=== PATIENT | male | born 1985 | race African-American/Black ===

== ENCOUNTER 2017-06-28 13:26 | Emergency (ER) | payer BC, MEDICAID ==
[~2017-06-28 13:26] MED LIST: PENI500T PO; Z.0.NO CURRENT MEDS
[2017-06-28 13:27] VITALS: BP 138/91; PULSE 111; RESP 17; TEMP 99.7; O2SAT 99
[2017-06-28] MEDS ORDERED: IOHEXOL 350 MG/ML 10 ML VIAL (for RAD DIAG) IVCONTRAST ONE (13:27)
[2017-06-28] MEDS ORDERED: SODIUM CHLOR 0.9% 1000 ML INJ 1,000 ML IV SCH (14:23)
[2017-06-28] MEDS ORDERED: SODIUM CHLORIDE 0.9% FLUSH 10 ML FLUSH IV FLUSH PRN (14:30)
[2017-06-28] MEDS ORDERED: ONDANSETRON HCL 4 MG/2 ML VIAL IVP ONE (14:30)
--- NOTE | 2017-06-28 15:06 | PD ---
HPI Chief Complaint: ENT Complaint Time Seen by Provider: 14:15 Travel History International Travel<30 days: No Contact w/Intl Traveler<30days: No Traveled to known affect area: No History of Present Illness HPI Patient is a 32-year-old male presenting to the emergency department for evaluation of sore throat, body aches, chills, abdominal pain, nausea or vomiting. Patient's symptoms started . His states that he has had cold sweats and has felt hot. He has not been eating or drinking normally. Patient states it feels like there is a golf ball in it when he tries to swallow. Patient is able to control his secretions and has not been drooling. He denies any significant past medical history. [facility] Past Medical History Medical History: Denies Significant Hx Tetanus Vaccination: > 5 Years Past Surgical History Surgical History: No Previous Surgery Social History Alcohol Use: No Tobacco Use: Yes Substance Use: No Allergies-Medications (Allergen,Severity, Reaction): Coded Allergies: No Known Allergies (Verified , 06/28/17) Reported Meds & Prescriptions Reported Meds & Active Scripts Active No Active Prescriptions or Reported Medications Review of Systems Except as stated in HPI: all other systems reviewed are Neg General / Constitutional: Positive: Fever, Chills HENT: Positive: Sore Throat Cardiovascular: No: Chest Pain or Discomfort Respiratory: Positive: Cough, No: Shortness of Breath Gastrointestinal: Positive: Nausea, Vomiting, Abdominal Pain Musculoskeletal: Positive: Myalgias Physical Exam Narrative GENERAL: Well-developed, well-nourished, alert male. Resting comfortably in no acute distress. SKIN: Warm and dry. HEAD: Atraumatic. Normocephalic. EYES: Pupils equal and round. No scleral icterus. No injection or drainage. ENT: No nasal bleeding or discharge. Mucous membranes pink and moist. Erythematous posterior pharynx, 1+ tonsillar hypertrophy with exudate noted. Uvula is midline, airway is patent. NECK: Trachea midline. No JVD. CARDIOVASCULAR: Regular rate and rhythm. RESPIRATORY: No accessory muscle use. Clear to auscultation. Breath sounds equal bilaterally. GASTROINTESTINAL: Abdomen soft, tender to palpation left lower quadrant, nondistended. Hepatic and splenic margins not palpable. No rebound, no guarding. Positive bowel sounds. MUSCULOSKELETAL: Extremities without clubbing, cyanosis, or edema. No obvious deformities. NEUROLOGICAL: Awake and alert. No obvious cranial nerve deficits. Motor grossly within normal limits. Five out of 5 muscle strength in the arms and legs. Normal speech. PSYCHIATRIC: Appropriate mood and affect; insight and judgment normal. Data Data Last Documented VS Vital Signs Date Time Temp Pulse Resp B/P (MAP) Pulse Ox O2 Delivery O2 Flow Rate FiO2 06/28/17 15:48 74 18 97 Room Air 06/28/17 13:27 99.7 Orders Orders Group A Rapid Strep Screen (06/28/17 14:14) Complete Blood Count With Diff (06/28/17 14:23) Comprehensive Metabolic Panel (06/28/17 14:23) Lipase (06/28/17 14:23) Ct Abd/Pel W Iv Contrast(Rout) (06/28/17 14:23) Iv Access Insert/Monitor (06/28/17 14:23) Ecg Monitoring (06/28/17 14:23) Oximetry (06/28/17 14:23) Ondansetron Inj (Zofran Inj) (06/28/17 14:30) Sodium Chlor 0.9% 1000 Ml Inj (Ns 1000 M (06/28/17 14:23) Sodium Chloride 0.9% Flush (Ns Flush) (06/28/17 14:30) Strep Culture (Group A) (06/28/17 14:15) Iohexol 350 Inj (Omnipaque 350 Inj) (06/28/17 13:27) Methylprednisolone So Succ Inj (Solumedr (06/28/17 16:30) Ibuprofen Liq (Motrin Liq) (06/28/17 16:30) Chest, Single Ap (06/28/17 ) Ibuprofen Liq (Motrin Liq) (06/28/17 16:45) Prochlorperazine Inj (Compazine Inj) (06/28/17 16:45) Ct Soft Tiss Neck W/O Iv Cont (06/28/17 ) Labs Laboratory Tests Test 06/28/17 14:30 White Blood Count 18.2 TH/MM3 Red Blood Count 4.97 MIL/MM3 Hemoglobin 14.7 GM/DL Hematocrit 44.2 % Mean Corpuscular Volume 88.8 FL Mean Corpuscular Hemoglobin 29.6 PG Mean Corpuscular Hemoglobin Concent 33.3 % Red Cell Distribution Width 13.0 % Platelet Count 322 TH/MM3 Mean Platelet Volume 7.8 FL Neutrophils (%) (Auto) 76.0 % Lymphocytes (%) (Auto) 9.9 % Monocytes (%) (Auto) 13.5 % Eosinophils (%) (Auto) 0.1 % Basophils (%) (Auto) 0.5 % Neutrophils # (Auto) 13.9 TH/MM3 Lymphocytes # (Auto) 1.8 TH/MM3 Monocytes # (Auto) 2.4 TH/MM3 Eosinophils # (Auto) 0.0 TH/MM3 Basophils # (Auto) 0.1 TH/MM3 CBC Comment AUTO DIFF Differential Total Cells Counted 100 Neutrophils % (Manual) 64 % Band Neutrophils % 5 % Lymphocytes % 14 % Monocytes % 12 % Neutrophils # (Manual) 13.5 TH/MM3 Metamyelocytes 1 % Myelocytes 4 % Differential Comment FINAL DIFF MANUAL Platelet Estimate NORMAL Platelet Morphology Comment NORMAL Red Cell Morphology Comment NORMAL Blood Urea Nitrogen 19 MG/DL Creatinine 1.43 MG/DL Random Glucose 112 MG/DL Total Protein 9.1 GM/DL Albumin 3.5 GM/DL Calcium Level 9.7 MG/DL Alkaline Phosphatase 89 U/L Aspartate Amino Transf (AST/SGOT) 32 U/L Alanine Aminotransferase (ALT/SGPT) 43 U/L Total Bilirubin 0.8 MG/DL Sodium Level 136 MEQ/L Potassium Level 3.3 MEQ/L Chloride Level 96 MEQ/L Carbon Dioxide Level 30.8 MEQ/L Anion Gap 9 MEQ/L Estimat Glomerular Filtration Rate 69 ML/MIN Lipase 86 U/L MDM Medical Decision Making Medical Screen Exam Complete: Yes Emergency Medical Condition: Yes Interpretation(s) Last Impressions Abdomen/Pelvis CT 06/28/17 1423 Signed Impressions: Service Date/Time: Wednesday, June 28, 2017 16:04 - CONCLUSION: 1. Hepatic steatosis. 2. Unremarkable bowel gas pattern with no inflammatory change or obstruction. Max Marrufo MD Neck CT 06/28/17 0000 Signed Impressions: Service Date/Time: Wednesday, June 28, 2017 17:13 - CONCLUSION: 1. No abscess identified. Luis De La Torre MD Chest X-Ray 06/28/17 0000 Signed Impressions: Service Date/Time: Wednesday, June 28, 2017 16:23 - CONCLUSION: No acute disease. There is no evidence of pneumonia. Max Marrufo MD Laboratory Tests Test 06/28/17 14:30 White Blood Count 18.2 TH/MM3 Red Blood Count 4.97 MIL/MM3 Hemoglobin 14.7 GM/DL Hematocrit 44.2 % Mean Corpuscular Volume 88.8 FL Mean Corpuscular Hemoglobin 29.6 PG Mean Corpuscular Hemoglobin Concent 33.3 % Red Cell Distribution Width 13.0 % Platelet Count 322 TH/MM3 Mean Platelet Volume 7.8 FL Neutrophils (%) (Auto) 76.0 % Lymphocytes (%) (Auto) 9.9 % Monocytes (%) (Auto) 13.5 % Eosinophils (%) (Auto) 0.1 % Basophils (%) (Auto) 0.5 % Neutrophils # (Auto) 13.9 TH/MM3 Lymphocytes # (Auto) 1.8 TH/MM3 Monocytes # (Auto) 2.4 TH/MM3 Eosinophils # (Auto) 0.0 TH/MM3 Basophils # (Auto) 0.1 TH/MM3 CBC Comment AUTO DIFF Differential Total Cells Counted 100 Neutrophils % (Manual) 64 % Band Neutrophils % 5 % Lymphocytes % 14 % Monocytes % 12 % Neutrophils # (Manual) 13.5 TH/MM3 Metamyelocytes 1 % Myelocytes 4 % Differential Comment FINAL DIFF MANUAL Platelet Estimate NORMAL Platelet Morphology Comment NORMAL Red Cell Morphology Comment NORMAL Blood Urea Nitrogen 19 MG/DL Creatinine 1.43 MG/DL Random Glucose 112 MG/DL Total Protein 9.1 GM/DL Albumin 3.5 GM/DL Calcium Level 9.7 MG/DL Alkaline Phosphatase 89 U/L Aspartate Amino Transf (AST/SGOT) 32 U/L Alanine Aminotransferase (ALT/SGPT) 43 U/L Total Bilirubin 0.8 MG/DL Sodium Level 136 MEQ/L Potassium Level 3.3 MEQ/L Chloride Level 96 MEQ/L Carbon Dioxide Level 30.8 MEQ/L Anion Gap 9 MEQ/L Estimat Glomerular Filtration Rate 69 ML/MIN Lipase 86 U/L Vital Signs Date Time Temp Pulse Resp B/P (MAP) Pulse Ox O2 Delivery O2 Flow Rate FiO2 06/28/17 14:11 96 16 06/28/17 13:27 99.7 111 17 138/91 (107) 99 Differential Diagnosis Viral syndrome versus strep pharyngitis versus diverticulitis versus colitis versus appendicitis versus other Narrative Course Patient is a 32-year-old male presenting to the emergency for evaluation of sore throat, body aches. Patient's vital signs are stable, he was mildly tachycardic on arrival. He reported abdominal pain as well as a feeling of a golf ball in his throat. Labs imaging were ordered and pending. CBC with a white count of 18.2 with left shift CBC with potassium 3.3, oral replacement ordered. Patient was given IV fluids, ibuprofen, Solu-Medrol. Patient reports improvement in pain after the administration of medications. Patient initially complained of abdominal pain, CT scan abdomen and pelvis shows hepatic status is, no acute abnormalities noted otherwise. Chest x-ray shows no acute disease CT of the neck shows no abscess. Findings are most consistent with an exudative pharyngitis, no other source of infection was identified. Discussed findings with my attending physician. Patient will be discharged home on clindamycin, prednisone and ibuprofen. He was given strict return precautions. Again patient reports feeling better, he appears well. He verbalized understanding of discharge instructions. Patient is stable for discharge. Diagnosis Primary Impression: Exudative pharyngitis Referrals: [facility] Primary Care Physician Patient Instructions: General Instructions, Pharyngitis (ED) Additional Instructions: Follow-up with your primary doctor Complete full course of antibiotics as prescribed Increased fluid intake Return to emergency department for any new or worsening symptoms Med/Other Pt SpecificInfo: Prescription(s) given Scripts Prednisone (Prednisone) 20 Mg Tab 20 MG PO BID for 5 Days, #10 TAB 0 Refills Prov: Pamella Zepeda 06/28/17 Ibuprofen (Ibuprofen) 800 Mg Tab 800 MG PO Q6HR Y for PAIN, #40 TAB 0 Refills Prov: Pamella Zepeda 06/28/17 Clindamycin (Clindamycin) 300 Mg Cap 300 MG PO Q6H for Infection for 10 Days, CAP 0 Refills Prov: Pamella Zepeda 06/28/17 Disposition: 01 DISCHARGE HOME Condition: Stable Pamella Zepeda Jun 28, 2017 15:06
[2017-06-28 15:12] LABS: AUTOMATED NEUTROPHIL # 13.9 TH/MM3 (1.8-7.7); BASOPHIL # 0.1 TH/MM3 (0-0.2); BASOPHIL % 0.5 % (0.0-2.0); EOSINOPHIL % 0.1 % (0.0-4.0); HEMATOCRIT 44.2 % (39.0-51.0); LYMPH % 9.9 % (9.0-44.0); LYMPHOCYTE # 1.8 TH/MM3 (1.0-4.8); MEAN CELL VOLUME 88.8 FL (80.0-100.0); MEAN CORPUSCULAR HEMOGLOBIN 29.6 PG (27.0-34.0); MEAN CORPUSCULAR HGB CONC 33.3 % (32.0-36.0); MONO % 13.5 % (0.0-8.0); PLATELET COUNT 322 TH/MM3 (150-450); RED BLOOD COUNT 4.97 MIL/MM3 (4.50-5.90); WHITE BLOOD COUNT 18.2 TH/MM3 (4.0-11.0)
[2017-06-28 15:14] LABS: HEMO FLAGS AUTO DIFF
[2017-06-28 15:39] LABS: ANION GAP 9 MEQ/L (5-15); AST (GOT) 32 U/L (15-37); BICARBONATE 30.8 MEQ/L (21.0-32.0); BLOOD UREA NITROGEN 19 MG/DL (7-18); CHLORIDE 96 MEQ/L (98-107); GLOMERULAR FILTRATION RATE 69 ML/MIN (>89); POTASSIUM 3.3 MEQ/L (3.5-5.1); SODIUM (NA) 136 MEQ/L (136-145)
[2017-06-28 15:41] LABS: ALKALINE PHOSPHATASE 89 U/L (45-117); ALT (GPT) 43 U/L (12-78); TOTAL BILIRUBIN ADULT 0.8 MG/DL (0.2-1.0)
[2017-06-28 15:48] VITALS: PULSE 74; RESP 18; O2SAT 97
[2017-06-28 15:50] LABS: BANDS 5 % (0-6); METAMYELOCYTES 1 % (0-1); MYELOCYTES 4 % (0-0); NEUTROPHIL # MANUAL DIFF 13.5 TH/MM3 (1.8-7.7); POLYS (SEG NEUTROPHILS) 64 % (16-70); WBC DIFF SAMPLE 100
[2017-06-28 15:51] LABS: PLATELET ESTIMATE SMEAR NORMAL (NORMAL); PLATELET MORPHOLOGY NORMAL (NORMAL); SCAN/DIFF FINAL DIFF MANUAL
--- NOTE | 2017-06-28 16:20 | RADRPT ---
EXAM DATE/TIME: 06/28/2017 16:04 [facility] COMPARISON: No previous studies available for comparison. INDICATIONS : Abdomen pain with nausea and chills for 6 days. IV CONTRAST: 96 cc Omnipaque 350 (iohexol) IV ORAL CONTRAST: No oral contrast ingested. RADIATION DOSE: 13.85 CTDIvol (mGy) MEDICAL HISTORY : None SURGICAL HISTORY : None. ENCOUNTER: Initial ACUITY: 4 - 6 days PAIN SCALE: 5/10 LOCATION: Bilateral upper quadrant TECHNIQUE: Volumetric scanning of the abdomen and pelvis was performed. Using automated exposure control and ad justment of the mA and/or kV according to patient size, radiation dose was kept as low as reasonably achievable to obtain optimal diagnostic quality images. DICOM format image data is available electro nically for review and comparison. FINDINGS: LOWER LUNGS: The visualized lower lungs are clear. LIVER: Homogeneous density without lesion. There is no dilation of the biliary tree. No calcified gallston es. There is moderate hepatic steatosis. SPLEEN: Normal size without lesion. PANCREAS: Within normal limits. KIDNEYS: Normal in size and shape. There is no mass, stone or hydronephrosis. ADRENAL GLANDS: Within normal limits. VASCULAR: There is no aortic aneurysm. BOWEL/MESENTERY: No oral contrast was given limiting the sensitivity. The stomach, small bowel, and colon demonstrate no acute abnormality. There is no free intraperitoneal air or fluid. ABDOMINAL WALL: Within normal limits. RETROPERITONEUM: There is no lymphadenopathy. BLADDER: No wall thickening or mass. REPRODUCTIVE: Within normal limits. INGUINAL: There is no lymphadenopathy or hernia. MUSCULOSKELETAL: Within normal limits for patient age. CONCLUSION: 1. Hepatic steatosis. 2. Unremarkable bowel gas pattern with no inflammatory change or obstruction. Max Marrufo MD on June 28, 2017 at 16:17 Board Certified Radiologist. This report was verified electronically.
[2017-06-28] MEDS ORDERED: IBUPROFEN SUSP 100 MG/5 ML 120 ML BOTTLE PO ONE (16:30)
[2017-06-28] MEDS ORDERED: methylPREDNISolone SOD SUCC 125 MG/2 ML VIAL IV PUSH ONE (16:30)
[2017-06-28] MEDS ORDERED: PROCHLORPERAZINE INJ 10 MG/2 ML VIAL IV PUSH ONE (16:45)
[2017-06-28] MEDS ORDERED: IBUPROFEN SUSP 100 MG/5 ML UDC PO ONE (16:45)
--- NOTE | 2017-06-28 17:02 | RADRPT ---
EXAM DATE/TIME: 06/28/2017 16:23 [facility] COMPARISON: No previous studies available for comparison. INDICATIONS : Fever. Flu-like symptoms for the past six days. MEDICAL HISTORY : None. SURGICAL HISTORY : None. ENCOUNTER: Initial ACUITY: 4 - 6 days PAIN SCORE: 0/10 LOCATION: Bilateral chest FINDINGS: A single view of the chest demonstrates the lungs to be symmetrically aerated without evidence of mas s, infiltrate or effusion. The cardiomediastinal contours are unremarkable. Osseous structures are intact. CONCLUSION: No acute disease. There is no evidence of pneumonia. Max Marrufo MD on June 28, 2017 at 17:00 Board Certified Radiologist. This report was verified electronically.
--- NOTE | 2017-06-28 17:30 | RADRPT ---
EXAM DATE/TIME: 06/28/2017 17:13 [facility] COMPARISON: CT ABDOMEN & PELVIS W CONTRAST, June 28, 2017, 16:04. INDICATIONS : Swelling in neck, abscess. RADIATION DOSE: 20.03 CTDIvol (mGy) MEDICAL HISTORY : None SURGICAL HISTORY : None. ENCOUNTER: Initial ACUITY: 4 - 6 days PAIN SCORE: 2/10 LOCATION: neck region. TECHNIQUE: Volumetric scanning of the neck was performed. Using automated exposure control and adjustment of th e mA and/or kV according to patient size, radiation dose was kept as low as reasonably achievable to obtain optimal diagnostic quality images. DICOM format image data is available electronically for re view and comparison. FINDINGS: NASOPHARYNX: The nasopharyngeal airway has a normal configuration. No mucosal thickening or mass is seen. OROPHARYNX: The intrinsic muscles of the tongue are symmetric. The tonsillar pillars are intact. The prevertebr al soft tissues are not thickened. LARYNX: The supraglottic, glottic, and infraglottic structures are intact. PARAPHARYNGEAL: The parapharyngeal space is intact. SALIVARY GLANDS: The parotid and submandibular glands are intact. LYMPH NODES: There are some small jugular and posterior cervical nodes. No enlarged or necrotic adenopathy is seen . THYROID: Homogeneous enhancement without evidence of nodule. BONES: Unremarkable. CONCLUSION: 1. No abscess identified. Luis De La Torre MD on June 28, 2017 at 17:25 Board Certified Radiologist. This report was verified electronically.
[2017-06-28] MEDS ORDERED: CLIN1CAP6 PO (17:56)
[2017-06-28] MEDS ORDERED: IBUP800T23 PO (17:56)
[2017-06-28] MEDS ORDERED: PRED20 PO (17:56)
[2017-06-28] MEDS ORDERED: POTASSIUM CHLORIDE 10 MEQ CONTROLLED RELEASE TAB PO ONE (18:15)
== END 2017-06-28 19:30 | disposition home or self-care (01) ==
LOC: NEPD 13:26
DX: J02.9 Acute pharyngitis, unspecified (principal); R05 Cough; R11.2 Nausea with vomiting, unspecified; M79.1 Myalgia; R00.0 Tachycardia, unspecified; K76.0 Fatty (change of) liver, not elsewhere classified; Z72.0 Tobacco use
CPT/HCPCS: 70490; 71010; 74177; 80053; 83690; 85007; 85027; 87081; 87880; 96361; 96374; 96375; 99285; J0780; J2405; J2930; J7030; Q9967

== ENCOUNTER 2017-06-29 22:08 | Inpatient (IN) | payer MEDICAID, OTHER ==
[~2017-06-29] VITALS: Ht 175.3 cm; Wt 99.4 kg
[~2017-06-29 22:08] MED LIST changes: +CLIN1CAP6 PO; +IBUP800T23 PO; -PENI500T PO; +PRED20 PO; -Z.0.NO CURRENT MEDS
[2017-06-29 22:11] VITALS: BP 176/84; PULSE 86; RESP 16; TEMP 98.8; O2SAT 99
--- NOTE | 2017-06-29 23:14 | PD ---
HPI Chief Complaint: GI Complaint Time Seen by Provider: 23:12 Travel History International Travel<30 days: No Contact w/Intl Traveler<30days: No Traveled to known affect area: No History of Present Illness HPI 32-year-old male presents to emergency department for evaluation of persistent nausea, vomiting, and burning in his esophagus. Pt states the burning in his esophagus is unbearable It worsens every time he vomits. Denies hematemesis. No diarrhea. Patient has been voiding well. He was seen and evaluated yesterday with complete workup to include CT abdomen and pelvis, chest x-ray, and neck CT, discharged home to follow-up outpatient. There were no acute findings identified at that time. He was discharged home on clindamycin, prednisone, and with additional pain control. He has other symptoms to report. PFSH Past Medical History Tetanus Vaccination: > 5 Years Influenza Vaccination: No Social History Alcohol Use: No Tobacco Use: Yes Substance Use: No Allergies-Medications (Allergen,Severity, Reaction): Coded Allergies: No Known Allergies (Verified , 06/29/17) Reported Meds & Prescriptions Reported Meds & Active Scripts Active Prednisone 20 Mg Tab 20 Mg PO BID 5 Days Ibuprofen 800 Mg Tab 800 Mg PO Q6HR PRN Clindamycin (Clindamycin HCl) 300 Mg Cap 300 Mg PO Q6H 10 Days Review of Systems Except as stated in HPI: all other systems reviewed are Neg Physical Exam Narrative GENERAL: Well-nourished male patient, ambulatory and in no acute distress SKIN: Focused skin assessment warm/dry. HEAD: Atraumatic. Normocephalic. EYES: Pupils equal and round. No scleral icterus. No injection or drainage. ENT: No nasal bleeding or discharge. Mucous membranes pink and moist. 2+ tonsillar edema with erythema and exudate. NECK: Trachea midline. No JVD. Anterior cervical lymphadenopathy. CARDIOVASCULAR: Regular rate and rhythm. No murmur appreciated. RESPIRATORY: No accessory muscle use. Clear to auscultation. Breath sounds equal bilaterally. GASTROINTESTINAL: Abdomen soft, distended. Epigastric tenderness to palpation. No guarding. No rebound tenderness. Hepatic and splenic margins not palpable. MUSCULOSKELETAL: No obvious deformities. No clubbing. No cyanosis. No edema. NEUROLOGICAL: Awake and alert. No obvious cranial nerve deficits. Motor grossly within normal limits. Normal speech. PSYCHIATRIC: Appropriate mood and affect; insight and judgment normal. Data Data Last Documented VS Vital Signs Date Time Temp Pulse Resp B/P (MAP) Pulse Ox O2 Delivery O2 Flow Rate FiO2 06/29/17 22:11 98.8 86 16 176/84 (114) 99 Room Air Orders Orders Iv Access Insert/Monitor (06/29/17 23:15) Complete Blood Count With Diff (06/29/17 23:15) Basic Metabolic Panel (Bmp) (06/29/17 23:15) Urinalysis - C+S If Indicated (06/29/17 23:15) Monoscreen (06/29/17 23:15) Sodium Chlor 0.9% 1000 Ml Inj (Ns 1000 M (06/29/17 23:15) Ondansetron Inj (Zofran Inj) (06/29/17 23:15) Pantoprazole Inj (Protonix Inj) (06/29/17 23:15) Prochlorperazine Inj (Compazine Inj) (06/30/17 00:15) Diphenhydramine Inj (Benadryl Inj) (06/30/17 00:15) Chest, Single Ap (06/30/17 ) Hepatic Functional Panel (06/30/17 00:45) Lipase (06/30/17 00:45) Lactic Acid (06/30/17 00:45) C-Reactive Protein (Crp) (06/30/17 00:45) Labs Laboratory Tests Test 06/30/17 00:00 White Blood Count 29.1 TH/MM3 Red Blood Count 4.98 MIL/MM3 Hemoglobin 14.6 GM/DL Hematocrit 43.5 % Mean Corpuscular Volume 87.5 FL Mean Corpuscular Hemoglobin 29.2 PG Mean Corpuscular Hemoglobin Concent 33.4 % Red Cell Distribution Width 13.0 % Platelet Count 371 TH/MM3 Mean Platelet Volume 7.6 FL Neutrophils (%) (Auto) 82.8 % Lymphocytes (%) (Auto) 6.9 % Monocytes (%) (Auto) 9.8 % Eosinophils (%) (Auto) 0.1 % Basophils (%) (Auto) 0.4 % Neutrophils # (Auto) 24.1 TH/MM3 Lymphocytes # (Auto) 2.0 TH/MM3 Monocytes # (Auto) 2.9 TH/MM3 Eosinophils # (Auto) 0.0 TH/MM3 Basophils # (Auto) 0.1 TH/MM3 CBC Comment AUTO DIFF Blood Urea Nitrogen 20 MG/DL Creatinine 1.40 MG/DL Random Glucose 128 MG/DL Calcium Level 9.4 MG/DL Sodium Level 136 MEQ/L Potassium Level 3.6 MEQ/L Chloride Level 97 MEQ/L Carbon Dioxide Level 30.8 MEQ/L Anion Gap 8 MEQ/L Estimat Glomerular Filtration Rate 71 ML/MIN Monoscreen NEG MDM Medical Decision Making Medical Screen Exam Complete: Yes Emergency Medical Condition: Yes Medical Record Reviewed: Yes Differential Diagnosis Gastritis versus gastroenteritis versus esophageal tear versus PUD versus tonsillitis versus pharyngitis Narrative Course 32-year-old male presents to emergency department for evaluation of persistent vomiting with associated esophageal pain/burning. Patient appears without distress. He does have epigastric tenderness to palpation. Lab work is ordered for comparison to yesterday. I do not to LV Hugo. Disposition will pend his judgment. [facility] Point of Care Internal Pos. & Neg. Controls: Passed Gastric Specimen Occult Blood: Negative Condition: Stable Cindy Voss Jun 29, 2017 23:14
[2017-06-29] MEDS ORDERED: ONDANSETRON HCL 4 MG/2 ML VIAL IVP ONE (23:15)
[2017-06-29] MEDS ORDERED: PANTOPRAZOLE SODIUM 40 MG VIAL IVP ONE (23:15)
[2017-06-29] MEDS ORDERED: SODIUM CHLOR 0.9% 1000 ML INJ 1,000 ML IV ONE (23:15)
[2017-06-30] VITALS (8 sets, daily range): BP systolic 123–152; BP diastolic 77–92; PULSE 65–90; RESP 16–18; TEMP 98.5–99.3; O2SAT 98–100
[2017-06-30] MEDS ORDERED: PROCHLORPERAZINE INJ 10 MG/2 ML VIAL IV PUSH ONE (00:15)
[2017-06-30] MEDS ORDERED: diphenhydrAMINE HCL 50 MG/ML VIAL IV PUSH ONE (00:15)
[2017-06-30 00:25] LABS: AUTOMATED NEUTROPHIL # 24.1 TH/MM3 (1.8-7.7); BASOPHIL # 0.1 TH/MM3 (0-0.2); BASOPHIL % 0.4 % (0.0-2.0); EOSINOPHIL % 0.1 % (0.0-4.0); HEMATOCRIT 43.5 % (39.0-51.0); LYMPH % 6.9 % (9.0-44.0); MEAN CELL VOLUME 87.5 FL (80.0-100.0); MEAN CORPUSCULAR HEMOGLOBIN 29.2 PG (27.0-34.0); MEAN CORPUSCULAR HGB CONC 33.4 % (32.0-36.0); MONO % 9.8 % (0.0-8.0); NEUT % 82.8 % (16.0-70.0); PLATELET COUNT 371 TH/MM3 (150-450); RED BLOOD COUNT 4.98 MIL/MM3 (4.50-5.90); WHITE BLOOD COUNT 29.1 TH/MM3 (4.0-11.0)
[2017-06-30 00:30] LABS: HEMO FLAGS AUTO DIFF
[2017-06-30 00:46] LABS: BICARBONATE 30.8 MEQ/L (21.0-32.0); POTASSIUM 3.6 MEQ/L (3.5-5.1)
[2017-06-30 00:57] LABS: BANDS 2 % (0-6); CORRECTED NUCLEATED RBC 1 /100 WBC (0-0); METAMYELOCYTES 2 % (0-1); MYELOCYTES 1 % (0-0); NEUTROPHIL # MANUAL DIFF 22.7 TH/MM3 (1.8-7.7); POLYS (SEG NEUTROPHILS) 73 % (16-70); WBC DIFF SAMPLE 100
[2017-06-30 00:59] LABS: PLATELET ESTIMATE SMEAR NORMAL (NORMAL); PLATELET MORPHOLOGY NORMAL (NORMAL); SCAN/DIFF FINAL DIFF MANUAL
--- NOTE | 2017-06-30 01:15 | RADRPT ---
EXAM DATE/TIME: 06/30/2017 00:49 [facility] COMPARISON: CHEST SINGLE AP, June 28, 2017, 16:23. INDICATIONS : Chest and upper abdomen pain. MEDICAL HISTORY : None. SURGICAL HISTORY : None. ENCOUNTER: Initial ACUITY: 2 days PAIN SCORE: 7/10 LOCATION: Bilateral chest FINDINGS: A single view of the chest demonstrates the lungs to be symmetrically aerated without evidence of mas s, infiltrate or effusion. The cardiomediastinal contours are unremarkable. Osseous structures are intact. CONCLUSION: No acute cardiopulmonary process. Too Gagnon MD on June 30, 2017 at 1:08 Board Certified Radiologist. This report was verified electronically.
[2017-06-30 01:24] LABS: INDIRECT BILIRUBIN 0.3 MG/DL (0.0-0.8); TOTAL BILIRUBIN ADULT 0.5 MG/DL (0.2-1.0)
[2017-06-30 02:25] LABS: BLOOD, URINE NEG (NEG); COMMENT (UR) CULT NOT INDICATED; CULTURE IF INDICATED CULT NOT INDICATED; GLUCOSE,URINE NEG (NEG); KETONE, URINE 10 mg/dL (NEG); MUCUS URINE FEW /lpf (OCC); NITRITE,URINE NEG (NEG); PH, URINE 5.5 (5.0-8.5); URINE COLOR YELLOW (YELLW/STRAW)
[2017-06-30] MEDS ORDERED: NALOXONE HCL 0.4 MG/ML AMP IV PUSH PRN (03:00)
[2017-06-30] MEDS ORDERED: SODIUM CHLORIDE 0.9% FLUSH 10 ML FLUSH IV FLUSH PRN (03:00)
--- NOTE | 2017-06-30 03:03 | PD ---
Physical Exam Date Seen by Provider: Jun 30, 2017 Time Seen by Provider: 02:59 Narrative GENERAL: This is a well-nourished, well-developed patient, in no apparent distress. SKIN: No rashes, ecchymoses or lesions. Warm and dry. HEAD: Atraumatic. Normocephalic. EYES: PERRL, EOMI, no discharge or injection. No scleral icterus. EARS: Clear NOSE: Nasal turbinates appear normal. THROAT: Posterior pharynx is mildly erythematous. He has mucous members are somewhat dry.. Airway patent. NECK: Trachea midline. supple, moves head freely. LUNGS: Clear to auscultation. CV: Regular in rhythm. ABDOMEN: Soft, mild tenderness in the epigastrium. No guarding or rebound.. EXT: No clubbing cyanosis or edema. Data Data Last Documented VS Vital Signs Date Time Temp Pulse Resp B/P (MAP) Pulse Ox O2 Delivery O2 Flow Rate FiO2 06/30/17 02:39 99.3 06/29/17 22:11 86 16 99 Room Air Orders Orders Iv Access Insert/Monitor (06/29/17 23:15) Complete Blood Count With Diff (06/29/17 23:15) Basic Metabolic Panel (Bmp) (06/29/17 23:15) Urinalysis - C+S If Indicated (06/29/17 23:15) Monoscreen (06/29/17 23:15) Sodium Chlor 0.9% 1000 Ml Inj (Ns 1000 M (06/29/17 23:15) Ondansetron Inj (Zofran Inj) (06/29/17 23:15) Pantoprazole Inj (Protonix Inj) (06/29/17 23:15) Prochlorperazine Inj (Compazine Inj) (06/30/17 00:15) Diphenhydramine Inj (Benadryl Inj) (06/30/17 00:15) Chest, Single Ap (06/30/17 ) Lactic Acid (06/30/17 00:45) C-Reactive Protein (Crp) (06/30/17 00:00) Hepatic Functional Panel (06/30/17 00:00) Lipase (06/30/17 00:00) Admit Order (Ed Use Only) (06/30/17 02:58) Labs Laboratory Tests Test 06/29/17 02:15 06/30/17 00:00 06/30/17 00:50 Urine Color YELLOW Urine Turbidity CLEAR Urine pH 5.5 Urine Specific [place] 1.021 Urine Protein TRACE mg/dL Urine Glucose (UA) NEG mg/dL Urine Ketones 10 mg/dL Urine Occult Blood NEG Urine Nitrite NEG Urine Bilirubin NEG Urine Urobilinogen 2.0 MG/DL Urine Leukocyte Esterase NEG Urine RBC LESS THAN 1 /hpf Urine WBC 1 /hpf Urine Mucus FEW /lpf Microscopic Urinalysis Comment CULT NOT INDICATED White Blood Count 29.1 TH/MM3 Red Blood Count 4.98 MIL/MM3 Hemoglobin 14.6 GM/DL Hematocrit 43.5 % Mean Corpuscular Volume 87.5 FL Mean Corpuscular Hemoglobin 29.2 PG Mean Corpuscular Hemoglobin Concent 33.4 % Red Cell Distribution Width 13.0 % Platelet Count 371 TH/MM3 Mean Platelet Volume 7.6 FL Neutrophils (%) (Auto) 82.8 % Lymphocytes (%) (Auto) 6.9 % Monocytes (%) (Auto) 9.8 % Eosinophils (%) (Auto) 0.1 % Basophils (%) (Auto) 0.4 % Neutrophils # (Auto) 24.1 TH/MM3 Lymphocytes # (Auto) 2.0 TH/MM3 Monocytes # (Auto) 2.9 TH/MM3 Eosinophils # (Auto) 0.0 TH/MM3 Basophils # (Auto) 0.1 TH/MM3 CBC Comment AUTO DIFF Differential Total Cells Counted 100 Neutrophils % (Manual) 73 % Band Neutrophils % 2 % Lymphocytes % 13 % Monocytes % 9 % Neutrophils # (Manual) 22.7 TH/MM3 Metamyelocytes 2 % Myelocytes 1 % Nucleated Red Blood Cells 1 /100 WBC Differential Comment FINAL DIFF MANUAL Platelet Estimate NORMAL Platelet Morphology Comment NORMAL Blood Urea Nitrogen 20 MG/DL Creatinine 1.40 MG/DL Random Glucose 128 MG/DL Total Protein 8.6 GM/DL Albumin 3.5 GM/DL Calcium Level 9.4 MG/DL Alkaline Phosphatase 79 U/L Aspartate Amino Transf (AST/SGOT) 38 U/L Alanine Aminotransferase (ALT/SGPT) 59 U/L Total Bilirubin 0.5 MG/DL Direct Bilirubin 0.2 MG/DL Sodium Level 136 MEQ/L Potassium Level 3.6 MEQ/L Chloride Level 97 MEQ/L Carbon Dioxide Level 30.8 MEQ/L Anion Gap 8 MEQ/L Estimat Glomerular Filtration Rate 71 ML/MIN Indirect Bilirubin 0.3 MG/DL C-Reactive Protein 1.42 MG/DL Lipase 735 U/L Monoscreen NEG Lactic Acid Level 1.1 mmol/L [facility] Medical Record Reviewed: Yes Supervised Visit with [place]: Yes Interpretation(s) Laboratory Tests Test 06/29/17 02:15 06/30/17 00:00 06/30/17 00:50 Urine Color YELLOW Urine Turbidity CLEAR Urine pH 5.5 Urine Specific [place] 1.021 Urine Protein TRACE mg/dL Urine Glucose (UA) NEG mg/dL Urine Ketones 10 mg/dL Urine Occult Blood NEG Urine Nitrite NEG Urine Bilirubin NEG Urine Urobilinogen 2.0 MG/DL Urine Leukocyte Esterase NEG Urine RBC LESS THAN 1 /hpf Urine WBC 1 /hpf Urine Mucus FEW /lpf Microscopic Urinalysis Comment CULT NOT INDICATED White Blood Count 29.1 TH/MM3 Red Blood Count 4.98 MIL/MM3 Hemoglobin 14.6 GM/DL Hematocrit 43.5 % Mean Corpuscular Volume 87.5 FL Mean Corpuscular Hemoglobin 29.2 PG Mean Corpuscular Hemoglobin Concent 33.4 % Red Cell Distribution Width 13.0 % Platelet Count 371 TH/MM3 Mean Platelet Volume 7.6 FL Neutrophils (%) (Auto) 82.8 % Lymphocytes (%) (Auto) 6.9 % Monocytes (%) (Auto) 9.8 % Eosinophils (%) (Auto) 0.1 % Basophils (%) (Auto) 0.4 % Neutrophils # (Auto) 24.1 TH/MM3 Lymphocytes # (Auto) 2.0 TH/MM3 Monocytes # (Auto) 2.9 TH/MM3 Eosinophils # (Auto) 0.0 TH/MM3 Basophils # (Auto) 0.1 TH/MM3 CBC Comment AUTO DIFF Differential Total Cells Counted 100 Neutrophils % (Manual) 73 % Band Neutrophils % 2 % Lymphocytes % 13 % Monocytes % 9 % Neutrophils # (Manual) 22.7 TH/MM3 Metamyelocytes 2 % Myelocytes 1 % Nucleated Red Blood Cells 1 /100 WBC Differential Comment FINAL DIFF MANUAL Platelet Estimate NORMAL Platelet Morphology Comment NORMAL Blood Urea Nitrogen 20 MG/DL Creatinine 1.40 MG/DL Random Glucose 128 MG/DL Total Protein 8.6 GM/DL Albumin 3.5 GM/DL Calcium Level 9.4 MG/DL Alkaline Phosphatase 79 U/L Aspartate Amino Transf (AST/SGOT) 38 U/L Alanine Aminotransferase (ALT/SGPT) 59 U/L Total Bilirubin 0.5 MG/DL Direct Bilirubin 0.2 MG/DL Sodium Level 136 MEQ/L Potassium Level 3.6 MEQ/L Chloride Level 97 MEQ/L Carbon Dioxide Level 30.8 MEQ/L Anion Gap 8 MEQ/L Estimat Glomerular Filtration Rate 71 ML/MIN Indirect Bilirubin 0.3 MG/DL C-Reactive Protein 1.42 MG/DL Lipase 735 U/L Monoscreen NEG Lactic Acid Level 1.1 mmol/L Differential Diagnosis Differential diagnosis: Dehydration, electrolyte abnormality, mono, pancreatitis , viral syndrome Narrative Course IV access is obtained. Patient's been given Zofran and Compazine along with a liter of normal saline. The patient states that his nausea is finally feeling better but still cannot keep anything down. I reviewed the patient's laboratory testing. He has an elevated white count of 29,000 although the patient had been given Solu-Medrol and clindamycin yesterday and sent home on similar medicines. He has now developed some pancreatitis. His lipase is now elevated at 738. It was normal yesterday. This is acute pancreatitis, intractable vomiting I have discussed the case with who is excepted the patient for an observation admission Diagnosis Primary Impression: Acute pancreatitis Qualified Codes: K85.90 - Acute pancreatitis without necrosis or infection, unspecified Additional Impression: intractable vomiting Condition: Stable Tobi Sams Jun 30, 2017 03:03
[2017-06-30] MEDS: SODIUM CHLOR 0.9% 1000 ML INJ 1,000 ML IV SCH ×3 (03:29→20:50)
[2017-06-30] MEDS: SODIUM CHLORIDE 0.9% FLUSH 10 ML FLUSH IV FLUSH SCH ×2 (09:59→20:47)
--- NOTE | 2017-06-30 11:47 | HHI.HP ---
[facility] [place] [facility] Stevo Melendez MD Admission Diagnosis intractable vomiting Diagnoses: Chief Complaint: difficulty swallowing, nausea, vomiting Travel History International Travel<30 Days: No Contact w/Intl Traveler <30 Da: No Traveled to Known Affected Are: No History of Present Illness 32-year-old black male being admitted for refractory nausea vomiting secondary to dysphagia. Patient was in his usual state of health until about 6 days ago when he began experiencing a sore throat and cold chills. As the days progressed, he began experiencing nausea with intermittent bloody emeses along with dehydration and a burning sensation in his chest. He states that he had an episode where he became very lightheaded and almost fell over a few days ago and eventually proceeded to come to the emergency room due to worsening symptoms. He had a negative strep throat workup but was discharged from the ER with prescribed clindamycin and Solu-Medrol anyway which he says he took consistently. He states that his that when he tries to eat or drink something the food item gets stuck in the middle of his chest and causes severe burning and pressure. This is especially worse with any citric products, the only food item which he thinks does not worsen it is some milk. Even water, he states, would make him feel like he has increased chest pressure and burning pain, and would have lead to vomiting as well. He states that the only thing that he was able to hold down with some milk which did not worsen his symptoms otherwise the patient says he has essentially not been able to eat or drink well for the past few days and feels quite weak. Patient denies taking any NSAIDs. Denies such episodes happened to him in the past. Review of Systems Except as stated in HPI: all other systems reviewed are Neg Past Family Social History Past Medical History Reviewed and Unremarkable Past Surgical History Reviewed and unremarkable Allergies: Coded Allergies: No Known Allergies (Verified , 06/29/17) Family History Mother with stage IV breast cancer, grandfather in his 60s from prostate cancer Social History Smokes cigarettes occasionally, drinks alcohol only socially, denies illicit drug use Physical Exam Vital Signs Vital Signs Date Time Temp Pulse Resp B/P (MAP) Pulse Ox O2 Delivery O2 Flow Rate FiO2 06/30/17 11:33 89 18 152/77 (102) 98 Room Air 06/30/17 08:15 98.5 84 17 149/92 (111) 98 Room Air 06/30/17 08:15 17 06/30/17 06:45 90 16 123/82 (96) 98 Room Air 06/30/17 03:35 98.5 06/30/17 02:39 99.3 06/29/17 22:11 98.8 86 16 176/84 (114) 99 Room Air Physical Exam VS: Reviewed, afebrile GENERAL: No acute distress until the patient begins to gag and vomit clear emesis SKIN: Warm and dry. EYES: No scleral icterus. Mild bilateral scleral injection ENT: Erythematous oropharynx; Mucous membranes pink and moist. CARDIOVASCULAR: Regular rate and rhythm. no murmurs RESPIRATORY: No accessory muscle use. Clear to auscultation. Breath sounds equal bilaterally. GASTROINTESTINAL: Abdomen soft, non-tender, nondistended. Hepatic and splenic margins not palpable. MUSCULOSKELETAL: Extremities without clubbing, cyanosis, or edema. No obvious deformities. grossly intact ROM with 5/5 strength in upper and lower extremities proximally NEUROLOGICAL: Awake and alert. No obvious cranial nerve deficits. No facial droop nor slurred speech noted. PSYCHIATRIC: Appropriate mood and affect; insight and judgment normal. Laboratory Laboratory Tests Test 06/30/17 00:00 06/30/17 00:50 06/30/17 09:55 White Blood Count 29.1 Red Blood Count 4.98 Hemoglobin 14.6 Hematocrit 43.5 Mean Corpuscular Volume 87.5 Mean Corpuscular Hemoglobin 29.2 Mean Corpuscular Hemoglobin Concent 33.4 Red Cell Distribution Width 13.0 Platelet Count 371 Mean Platelet Volume 7.6 Neutrophils (%) (Auto) 82.8 Lymphocytes (%) (Auto) 6.9 Monocytes (%) (Auto) 9.8 Eosinophils (%) (Auto) 0.1 Basophils (%) (Auto) 0.4 Neutrophils # (Auto) 24.1 Lymphocytes # (Auto) 2.0 Monocytes # (Auto) 2.9 Eosinophils # (Auto) 0.0 Basophils # (Auto) 0.1 CBC Comment AUTO DIFF Differential Total Cells Counted 100 Neutrophils % (Manual) 73 Band Neutrophils % 2 Lymphocytes % 13 Monocytes % 9 Neutrophils # (Manual) 22.7 Metamyelocytes 2 Myelocytes 1 Nucleated Red Blood Cells 1 Differential Comment FINAL DIFF MANUAL Platelet Estimate NORMAL Platelet Morphology Comment NORMAL Blood Urea Nitrogen 20 Creatinine 1.40 Random Glucose 128 Total Protein 8.6 Albumin 3.5 Calcium Level 9.4 Alkaline Phosphatase 79 Aspartate Amino Transf (AST/SGOT) 38 Alanine Aminotransferase (ALT/SGPT) 59 Total Bilirubin 0.5 Direct Bilirubin 0.2 Sodium Level 136 Potassium Level 3.6 Chloride Level 97 Carbon Dioxide Level 30.8 Anion Gap 8 Estimat Glomerular Filtration Rate 71 Indirect Bilirubin 0.3 C-Reactive Protein 1.42 Lipase 735 Monoscreen NEG Lactic Acid Level 1.1 Urine Opiates Screen NEG Urine Barbiturates Screen NEG Urine Amphetamines Screen NEG Urine Benzodiazepines Screen NEG Urine Cocaine Screen NEG Urine Cannabinoids Screen POS Result Diagram: 06/30/17 0000 06/30/17 0000 Imaging Last Impressions Chest X-Ray 06/30/17 0000 Signed Impressions: Service Date/Time: June 00:49 - CONCLUSION: No acute cardiopulmonary process. Too Gagnon MD My independent review of the plain chest x-ray does not show any abnormalities Caprini VTE Risk Assessment Caprini VTE Risk Assessment: No/Low Risk (score <= 1) Caprini Risk Assessment Model Point Value = 1 Point Value = 2 Point Value = 3 Point Value = 5 Age 41-60 Minor surgery BMI > 25 kg/m2 Swollen legs Varicose veins or History of unexplained or recurrent spontaneous Oral contraceptives or hormone replacement Sepsis (< 1 month) Serious lung disease, including pneumonia (< 1 month) Abnormal pulmonary function Acute myocardial infarction Congestive heart failure (< 1 month) History of inflammatory bowel disease Medical patient at bed rest Age 61-74 Arthroscopic surgery Major open surgery (> 45 min) Laparoscopic surgery (> 45 min) Malignancy Confined to bed (> 72 hours) Immobilizing plaster cast Central venous access Age >= 75 History of VTE Family history of VTE Factor V Leiden Prothrombin [id number] Lupus anticoagulant Anticardiolipin antibodies Elevated serum homocysteine Heparin-induced thrombocytopenia Other congenital or acquired thrombophilia Stroke (< 1 month) Elective arthroplasty Hip, pelvis, or leg fracture Acute spinal cord injury (< 1 month) Prophylaxis Regimen Total Risk Factor Score Risk Level Prophylaxis Regimen 0-1 Low Early ambulation 2 Moderate Order ONE of the following: *Sequential Compression Device (SCD) *Heparin 5000 units SQ BID 3-4 Higher Order ONE of the following medications: *Heparin 5000 units SQ TID *Enoxaparin/Lovenox 40 mg SQ daily (WT < 150 kg, CrCl > 30 mL/min) *Enoxaparin/Lovenox 30 mg SQ daily (WT < 150 kg, CrCl > 10-29 mL/min) *Enoxaparin/Lovenox 30 mg SQ BID (WT < 150 kg, CrCl > 30 mL/min) AND/OR *Sequential Compression Device (SCD) 5 or more Highest Order ONE of the following medications: *Heparin 5000 units SQ TID (Preferred with Epidurals) *Enoxaparin/Lovenox 40 mg SQ daily (WT < 150 kg, CrCl > 30 mL/min) *Enoxaparin/Lovenox 30 mg SQ daily (WT < 150 kg, CrCl > 10-29 mL/min) *Enoxaparin/Lovenox 30 mg SQ BID (WT < 150 kg, CrCl > 30 mL/min) AND *Sequential Compression Device (SCD) Assessment and Plan Assessment and Plan 32-year-old black male being admitted for nausea/vomiting secondary to persistent dysphagia Nausea/vomiting w/ hematemesis - I independently reviewed the CT scan from the patient's prior visit and do not note any substantial fecal accumulation that would cause his symptoms - Zofran when necessary, Phenergan when necessary - Likely secondary to patient's dysphagia and/or severe acid reflux - Currently nothing by mouth - If persisting, may order GB US - cbc in AM Dysphagia - Possible mechanical obstruction versus esophageal dysmotility - Will hold off on any more invasive chest imaging and will consult gastroenterology to help dictate workup (barium swallow vs EGD), nothing by mouth for now. I am not confident that the patient can tolerate a barium swallow simply due to his difficulty with by mouth intake - IV hydration Suspected acid reflux compounded by possible dysphagia - Continue IV Protonix KATERINA - Secondary to poor by mouth intake, hydrate as above intravenously, repeat BMP Sore throat - Likely secondary to acid reflux, treat as above, negative for strep throat, no need for antibiotics or steroids at this time Leukocytosis - Suspected to be due to nausea/vomiting, monitor Elevated lipase - Clinically the patient does not have pancreatitis and his lipase is minimally elevated, no need for any further workup at this time DVT prophylaxis with early ambulation Physician Certification 2 Midnight Certification Type: Admission for Inpatient Services Order for Inpatient Services The services are ordered in accordance with Medicare regulations or non- Medicare payer requirements, as applicable. In the case of services not specified as inpatient-only, they are appropriately provided as inpatient services in accordance with the 2-midnight benchmark. Estimated LOS (days): 2 2 days is the estimated time the patient will need to remain in the hospital, assuming treatment plan goals are met and no additional complications. Post-Hospital Plan: Home Eder Perez MD Jun 30, 2017 11:47
[2017-06-30] MEDS ORDERED: PROMETHAZINE HCL 25 MG TAB PO PRN (12:00)
--- NOTE | 2017-06-30 12:29 | PD.CONS ---
HPI History of Present Illness This is a 32 year old male who began having generalized malaise, swollen glands in his neck, sore throat, odynophagia, weakness, and chills since . He reports that he has not been able to tolerate po secondary to the odynophagia and c/o severe pain with swallowing that feels as if he is swallowing razor blades. On Tuesday, he was trying to help people prepare for the storm, but states that he was becoming dizzy while going up the ladder and therefore had to stop and went home to rest. On Tuesday, his symptoms seemed to worsen and he also started having nausea and vomiting. Initially this was more dry heaving with occasional bilious material (but no blood initially). He also developed intermittent diffuse cramping with significant epigastric discomfort that radiates to his chest with severe acid reflux. He went to the ER on and was diagnosed with pharyngitis (Of note his strep screen was negative). He was discharged home with scripts for clindamycin, steroids, and Ibuprofen 800mg. He was taking his medications as prescribed, but states that the medications made his pain worse and he started vomiting a moderate to large amount of red blood. He believes he had 2-3 episodes yesterday and maybe once today. He reports that he is not able to tolerate any po secondary to the nausea/vomiting and odynophagia. He has not had any bowel movements, but denies any recent melena or hematochezia. He reports that he did take a few doses of Aleve prior to getting the prescription for ibuprofen. He denies any history of peptic ulcer disease or GERD. He rarely drinks alcohol. He notes that his son recently had a sore throat as well. (Fannie Macdonald) [facility] Past Medical History Denies Past Surgical History Denies (Fannie Macdonald) Coded Allergies: No Known Allergies (Verified , 06/29/17) Medications Allergies Coded Allergies Type Severity Reaction Last Updated Verified No Known Allergies 06/29/17 Yes Active Scripts Medications Dose Route/Sig Max Daily Dose Days Date Category Prednisone 20 Mg Tab 20 Mg PO BID 5 06/28/17 Rx Ibuprofen 800 Mg Tab 800 Mg PO Q6HR PRN 06/28/17 Rx Clindamycin (Clindamycin HCl) 300 Mg Cap 300 Mg PO Q6H 10 06/28/17 Rx Family History Mother with stage IV breast cancer, maternal grandfather in his 60s from prostate cancer Social History Smokes cigarettes occasionally, rare etoh use, no illicit drug use. (Fannie Macdonald) Review of Systems Constitutional: COMPLAINS OF: Fatigue, Fever, Chills, Dizziness, Change in appetite Respiratory: COMPLAINS OF: Cough, Shortness of breath Gastrointestinal: COMPLAINS OF: Abdominal pain, Constipation, Nausea, Vomiting , Heartburn, Hematemesis, DENIES: Black stools, Bloody stools, Diarrhea Musculoskeletal: COMPLAINS OF: Muscle aches Hematologic/lymphatic: DENIES: Bruising Neurologic: COMPLAINS OF: Headache Psychiatric: DENIES: Confusion (Fannie Macdonald) GI Exam Vitals I&O Vital Signs Date Time Temp Pulse Resp B/P (MAP) Pulse Ox O2 Delivery O2 Flow Rate FiO2 06/30/17 11:33 89 18 152/77 (102) 98 Room Air 06/30/17 08:15 98.5 84 17 149/92 (111) 98 Room Air 06/30/17 08:15 17 06/30/17 06:45 90 16 123/82 (96) 98 Room Air 06/30/17 03:35 98.5 06/30/17 02:39 99.3 06/29/17 22:11 98.8 86 16 176/84 (114) 99 Room Air I/O 06/29/17 06/29/17 06/29/17 06/30/17 06/30/17 06/30/17 07:00 15:00 23:00 07:00 15:00 23:00 Intake Total 2000 ml Output Total 200 ml Balance 1800 ml Intake IV Total 2000 ml Output Emesis 200 ml Imaging Last Impressions Chest X-Ray 06/30/17 0000 Signed Impressions: Service Date/Time: June 00:49 - CONCLUSION: No acute cardiopulmonary process. Too Gagnon MD Laboratory Test 06/30/17 00:00 06/30/17 00:50 06/30/17 09:55 White Blood Count 29.1 TH/MM3 Red Blood Count 4.98 MIL/MM3 Hemoglobin 14.6 GM/DL Hematocrit 43.5 % Mean Corpuscular Volume 87.5 FL Mean Corpuscular Hemoglobin 29.2 PG Mean Corpuscular Hemoglobin Concent 33.4 % Red Cell Distribution Width 13.0 % Platelet Count 371 TH/MM3 Mean Platelet Volume 7.6 FL Neutrophils (%) (Auto) 82.8 % Lymphocytes (%) (Auto) 6.9 % Monocytes (%) (Auto) 9.8 % Eosinophils (%) (Auto) 0.1 % Basophils (%) (Auto) 0.4 % Neutrophils # (Auto) 24.1 TH/MM3 Lymphocytes # (Auto) 2.0 TH/MM3 Monocytes # (Auto) 2.9 TH/MM3 Eosinophils # (Auto) 0.0 TH/MM3 Basophils # (Auto) 0.1 TH/MM3 CBC Comment AUTO DIFF Differential Total Cells Counted 100 Neutrophils % (Manual) 73 % Band Neutrophils % 2 % Lymphocytes % 13 % Monocytes % 9 % Neutrophils # (Manual) 22.7 TH/MM3 Metamyelocytes 2 % Myelocytes 1 % Nucleated Red Blood Cells 1 /100 WBC Differential Comment FINAL DIFF MANUAL Platelet Estimate NORMAL Platelet Morphology Comment NORMAL Blood Urea Nitrogen 20 MG/DL Creatinine 1.40 MG/DL Random Glucose 128 MG/DL Total Protein 8.6 GM/DL Albumin 3.5 GM/DL Calcium Level 9.4 MG/DL Alkaline Phosphatase 79 U/L Aspartate Amino Transf (AST/SGOT) 38 U/L Alanine Aminotransferase (ALT/SGPT) 59 U/L Total Bilirubin 0.5 MG/DL Direct Bilirubin 0.2 MG/DL Sodium Level 136 MEQ/L Potassium Level 3.6 MEQ/L Chloride Level 97 MEQ/L Carbon Dioxide Level 30.8 MEQ/L Anion Gap 8 MEQ/L Estimat Glomerular Filtration Rate 71 ML/MIN Indirect Bilirubin 0.3 MG/DL C-Reactive Protein 1.42 MG/DL Lipase 735 U/L Monoscreen NEG Lactic Acid Level 1.1 mmol/L Urine Opiates Screen NEG Urine Barbiturates Screen NEG Urine Amphetamines Screen NEG Urine Benzodiazepines Screen NEG Urine Cocaine Screen NEG Urine Cannabinoids Screen POS Physical Examination HEENT: Normocephalic; atraumatic; no jaundice Oropharyngeal slightly erythematous CHEST: CTA CARDIAC: RRR ABDOMEN: Soft, nondistended, mild diffuse tenderness; no hepatosplenomegaly; bowel sounds are present in all four quadrants. EXTREMITIES: No clubbing, cyanosis, or edema. SKIN: Normal; no rash; no jaundice. DOCUMENT PREPARATION SPECIALIST: No focal deficits; alert and oriented times three. (Fannie Macdonald) Assessment and Plan Plan ASSESSMENT: - Upper GIB with hematemesis. Pt initially developed malaise, neck adenopathy, fever, chills, sore throat and then developed nausea with dry heaving. He was seen in ER and given Clindamycin, Ibuprofen, and steroids (prior to this he did take a few doses of aleve). He then started having nausea/vomiting with hematemesis consisting of red blood (moderate to large amount) yesterday. He reports one episode today. No hx of PUD. Rare ETOH use. ? Magy dominguez tear vs gastritis vs pud vs severe esophagitis (viral vs. other). Will schedule for EGD today. PPI with BID dosing. HH stable. - Severe odynophagia. Pt recently diagnosed with pharyngitis. C/O severe pain with swallowing that feels as if he is swallowing razor blades. He originally had cervical chain adenopathy- reported, but his has improved. Neck CT (06/28) unremarkable. - Nausea, inability tolerate po, abdominal pain. CT scan abdomen and pelvis (10/02)---> hepatic steatosis, unremarkable bowel gas pattern with no inflammatory change or obstruction. - Pharyngitis, fever, chills, malaise. Seen in ER on 06/28. Given Clindamycin, Steroids, Ibuprofen- worsening of GI symptoms. Leukocytosis 18.2 - Leukocytosis. WBC 29.1 Recent strep screen negative. - KATERINA. likely related to dehydration. IVF. PLAN: - Plan for egd today - Obtain consents - NPO - IVF - Protonix 40mg IV BID - CBC, BMP in am - Supportive care - Further recommendations to follow based on results of above - Pt seen and examined by Dr. Solis and myself and this note is written on her behalf (Fannie Macdonald) Physician Comments seen, examined agree with above (Kiesha Solis MD) Fannie Macdonald Jun 30, 2017 12:29 Kiesha Solis MD Jun 30, 2017 17:15
[2017-06-30] MEDS ORDERED: ONDANSETRON HCL 4 MG/2 ML VIAL IV PUSH PRN (14:00)
--- NOTE | 2017-06-30 14:05 | GIPROC ---
[facility] [address] [facility]. [facility], [id number] EGD PROCEDURE REPORT EXAM DATE: 06/30/2017 PATIENT NAME: Sergio Sanchez MR #: [id number] BIRTHDATE: 1985 ATTENDING: Kiesha Solis MD ORDER #: [id number] MOLD SHEET CLEANER: Viviana Ennis and Christine Doss STATUS: inpatient INDICATIONS: The patient is a 32 yr old male here for an EGD due to odynophagia, nausea, vomiting PROCEDURE PERFORMED: EGD w/ biopsy MEDICATIONS: None and Per Anesthesia. TOPICAL ANESTHETIC: none CONSENT: The patient understands the risks and benefits of the procedure and understands that these risks include, but are not limited to: sedation, allergic reaction, infection, perforation and/or bleeding. Alternative means of evaluation and treatment include, among others: physical exam, x-rays, and/or surgical intervention. The patient elects to proceed with this endoscopic procedure. medical equipment was checked for proper function. Hand hygiene and appropriate measures for infection prevention was taken. After the risks, benefits and alternatives of the procedure were thoroughly explained, Informed consent was verified, confirmed and timeout was successfully executed by the treatment team. The patient was anesthetized with topical anesthesia and the Pentax [id number] endoscope was introduced through the mouth and advanced to the second portion of the duodenum. Retroflexed views revealed a hiatal hernia The gastroscope was then slowly withdrawn and removed. Duodenitis second portion-biopsy gastritis antrum-biopsy esophagitis distal esophagus-biopsy. ADVERSE EVENTS: There were no complications. IMPRESSIONS: 1. Duodenitis second portion-biopsy gastritis antrum-biopsy esophagitis distal esophagus-biopsy 2. Retroflexed views revealed a hiatal hernia RECOMMENDATIONS: 1. Anti-reflux regimen 2. Continue PPI 3. Avoid NSAIDS PATIENT CONDITION: stable DISPOSITION: Inpatient REPEAT EXAM: EGD pending biopsy results Kiesha Solis MD eSigned: Kiesha Solis MD 06/30/2017 2:05 PM cc:
[2017-06-30] MEDS ORDERED: PROPOFOL 200 MG/20 ML AMP IV PUSH ONE (14:06)
[2017-06-30] MEDS: PANTOPRAZOLE SODIUM 40 MG VIAL IV PUSH SCH (16:03)
[2017-06-30] MEDS: SUCRALFATE 1 GM/10 ML CUP PO SCH ×2 (16:55→20:47)
[2017-07-01] VITALS: BP 124/75; PULSE 71; RESP 16; TEMP 98.8; O2SAT 98
[2017-07-01] MEDS: PANTOPRAZOLE SODIUM 40 MG VIAL IV PUSH SCH ×2 (00:57→12:30)
[2017-07-01] MEDS: SODIUM CHLOR 0.9% 1000 ML INJ 1,000 ML IV SCH ×3 (03:15→16:43)
[2017-07-01 04:00] VITALS: BP 144/89; PULSE 79; RESP 16; TEMP 98.7; O2SAT 99
[2017-07-01 07:59] LABS: BASOPHIL # 0.1 TH/MM3 (0-0.2); BASOPHIL % 0.4 % (0.0-2.0); EOSINOPHIL % 0.2 % (0.0-4.0); HEMATOCRIT 42.8 % (39.0-51.0); LYMPH % 16.2 % (9.0-44.0); LYMPHOCYTE # 2.7 TH/MM3 (1.0-4.8); MEAN CORPUSCULAR HGB CONC 33.3 % (32.0-36.0); MONO % 11.3 % (0.0-8.0); NEUT % 71.9 % (16.0-70.0); PLATELET COUNT 351 TH/MM3 (150-450); RED BLOOD COUNT 4.76 MIL/MM3 (4.50-5.90); RED CELL DISTRIBUTION WIDTH 13.4 % (11.6-17.2); WHITE BLOOD COUNT 16.7 TH/MM3 (4.0-11.0)
[2017-07-01 08:00] VITALS: BP 144/85; PULSE 63; RESP 18; TEMP 98.4; O2SAT 100
[2017-07-01] MEDS: SUCRALFATE 1 GM/10 ML CUP PO SCH ×4 (08:00→20:11)
[2017-07-01 08:17] LABS: BICARBONATE 26.4 MEQ/L (21.0-32.0); POTASSIUM 3.9 MEQ/L (3.5-5.1)
[2017-07-01 08:24] LABS: HEMO FLAGS AUTO DIFF
[2017-07-01] MEDS: SODIUM CHLORIDE 0.9% FLUSH 10 ML FLUSH IV FLUSH SCH ×2 (08:25→20:12)
[2017-07-01 09:36] LABS: METAMYELOCYTES 2 % (0-1); MYELOCYTES 4 % (0-0); NEUTROPHIL # MANUAL DIFF 13.2 TH/MM3 (1.8-7.7); POLYS (SEG NEUTROPHILS) 73 % (16-70); WBC DIFF SAMPLE 100
[2017-07-01 09:37] LABS: PLATELET ESTIMATE SMEAR NORMAL (NORMAL); PLATELET MORPHOLOGY NORMAL (NORMAL); SCAN/DIFF FINAL DIFF MANUAL
[2017-07-01 12:00] VITALS: BP 151/88; PULSE 63; RESP 18; TEMP 98.2; O2SAT 100
[2017-07-01 16:00] VITALS: BP 135/84; PULSE 73; RESP 18; TEMP 99.2; O2SAT 100
--- NOTE | 2017-07-01 17:25 | HHI.GIFU ---
GI Follow-up Note Consult Follow-up Subjective: Patient laying in bed , still complaining of retrosternal burning , nausea , regurgitation Objective: PHYSICAL EXAMINATION: Vitals signs stable No fever Vital Signs Date Time Temp Pulse Resp B/P (MAP) Pulse Ox O2 Delivery O2 Flow Rate FiO2 07/01/17 12:00 98.2 63 18 151/88 (109) 100 HEENT: Pupils round and reactive to light; normocephalic; atraumatic; no jaundice. Throat is clear. NECK: Neck is supple, no JVD, no lymphadenopathy. CHEST: Chest is clear to auscultation and percussion. CARDIAC: Regular rate and rhythm with no murmur gallop or rubs. ABDOMEN: Soft, nondistended, nontender; no hepatosplenomegaly; bowel sounds are present in all four quadrants. EXTREMITIES: No clubbing, cyanosis, or edema. SKIN: Normal; no rash; no jaundice. CORPORATE STRATEGY ANALYST: No focal deficits; alert and oriented times three. Available Data (labs, X- Rays, Procedues) : Laboratory Tests Test 06/30/17 00:00 06/30/17 00:50 06/30/17 09:55 07/01/17 07:20 White Blood Count 29.1 TH/MM3 16.7 TH/MM3 Red Blood Count 4.98 MIL/MM3 4.76 MIL/MM3 Hemoglobin 14.6 GM/DL 14.3 GM/DL Hematocrit 43.5 % 42.8 % Mean Corpuscular Volume 87.5 FL 90.0 FL Mean Corpuscular Hemoglobin 29.2 PG 30.0 PG Mean Corpuscular Hemoglobin Concent 33.4 % 33.3 % Red Cell Distribution Width 13.0 % 13.4 % Platelet Count 371 TH/MM3 351 TH/MM3 Mean Platelet Volume 7.6 FL 7.8 FL Neutrophils (%) (Auto) 82.8 % 71.9 % Lymphocytes (%) (Auto) 6.9 % 16.2 % Monocytes (%) (Auto) 9.8 % 11.3 % Eosinophils (%) (Auto) 0.1 % 0.2 % Basophils (%) (Auto) 0.4 % 0.4 % Neutrophils # (Auto) 24.1 TH/MM3 12.0 TH/MM3 Lymphocytes # (Auto) 2.0 TH/MM3 2.7 TH/MM3 Monocytes # (Auto) 2.9 TH/MM3 1.9 TH/MM3 Eosinophils # (Auto) 0.0 TH/MM3 0.0 TH/MM3 Basophils # (Auto) 0.1 TH/MM3 0.1 TH/MM3 CBC Comment AUTO DIFF AUTO DIFF Differential Total Cells Counted 100 100 Neutrophils % (Manual) 73 % 73 % Band Neutrophils % 2 % Lymphocytes % 13 % 16 % Monocytes % 9 % 5 % Neutrophils # (Manual) 22.7 TH/MM3 13.2 TH/MM3 Metamyelocytes 2 % 2 % Myelocytes 1 % 4 % Nucleated Red Blood Cells 1 /100 WBC Differential Comment FINAL DIFF MANUAL FINAL DIFF MANUAL Platelet Estimate NORMAL NORMAL Platelet Morphology Comment NORMAL NORMAL Blood Urea Nitrogen 20 MG/DL 12 MG/DL Creatinine 1.40 MG/DL 1.12 MG/DL Random Glucose 128 MG/DL 96 MG/DL Total Protein 8.6 GM/DL Albumin 3.5 GM/DL Calcium Level 9.4 MG/DL 9.1 MG/DL Alkaline Phosphatase 79 U/L Aspartate Amino Transf (AST/SGOT) 38 U/L Alanine Aminotransferase (ALT/SGPT) 59 U/L Total Bilirubin 0.5 MG/DL Direct Bilirubin 0.2 MG/DL Sodium Level 136 MEQ/L 139 MEQ/L Potassium Level 3.6 MEQ/L 3.9 MEQ/L Chloride Level 97 MEQ/L 105 MEQ/L Carbon Dioxide Level 30.8 MEQ/L 26.4 MEQ/L Anion Gap 8 MEQ/L 8 MEQ/L Estimat Glomerular Filtration Rate 71 ML/MIN 92 ML/MIN Indirect Bilirubin 0.3 MG/DL C-Reactive Protein 1.42 MG/DL Lipase 735 U/L Monoscreen NEG Lactic Acid Level 1.1 mmol/L Urine Opiates Screen NEG Urine Barbiturates Screen NEG Urine Amphetamines Screen NEG Urine Benzodiazepines Screen NEG Urine Cocaine Screen NEG Urine Cannabinoids Screen POS Red Cell Morphology Comment NORMAL ASSESSMENT/PLAN: severe reflux esophagitis-r/o garett/herpes/cmv pharyngitis -as per primary dehydration secondary the above mild elevated lipase -recent ct normal hepatic steatosis-weight loss, avoid etoh, fatty foods RECOMMENDATIONS: soft diet-discussed about food choices continue Protonix,Carafate add Lidocaine viscous zofran prn fu biopsy if better can dc in 1-2 days It was a pleasure seeing Sergio Sanchez. Thank you for this consult. Entered by: Kiesha Kitchen MD Jul 01, 2017 17:25
--- NOTE | 2017-07-01 17:54 | HHI.PR ---
Subjective Remarks Follow-up nausea vomiting. Patient still reports having some retrosternal pressure discomfort while eating, afebrile, has not had a bowel movement yet Objective Vital Signs Date Time Temp Pulse Resp B/P (MAP) Pulse Ox O2 Delivery O2 Flow Rate FiO2 07/01/17 16:00 99.2 73 18 135/84 (101) 100 07/01/17 12:00 98.2 63 18 151/88 (109) 100 07/01/17 08:00 98.4 63 18 144/85 (104) 100 07/01/17 04:00 98.7 79 16 144/89 (107) 99 07/01/17 00:00 98.8 71 16 124/75 (91) 98 06/30/17 20:00 98.7 65 16 138/84 (102) 99 I/O 06/30/17 06/30/17 06/30/17 07/01/17 07/01/17 07/01/17 06:59 14:59 22:59 06:59 14:59 22:59 Intake Total 2000 ml 350 ml 1297 ml 1528 ml 871 ml Output Total 200 ml Balance 1800 ml 350 ml 1297 ml 1528 ml 871 ml Intake Oral 720 ml 480 ml 480 ml IV Total 2000 ml 577 ml 1048 ml 391 ml Other 350 ml Output Emesis 200 ml # Voids 2 2 3 # Bowel Movements 0 Result Diagram: 07/01/17 0720 07/01/17 0720 Imaging Last Impressions Chest X-Ray 06/30/17 0000 Signed Impressions: Service Date/Time: June 00:49 - CONCLUSION: No acute cardiopulmonary process. Too Gagnon MD Objective Remarks No acute distress Respiratory: Unlabored breathing, adequate breath sounds bilaterally that are clear Abdomen: Soft nontender nondistended, no focal masses palpated A/P Assessment and Plan 32-year-old black male being admitted for nausea/vomiting secondary to persistent dysphagia Nausea/vomiting w/ hematemesis - improved - Zofran when necessary, Phenergan when necessary - Likely secondary to patient's dysphagia and/or severe acid reflux - If persisting, may order GB US Dysphagia - post EGD: 1. Duodenitis second portion-biopsy gastritis antrum-biopsy esophagitis distal esophagus-biopsy 2. Retroflexed views revealed a hiatal hernia - Switching over to soft diet per GI recommendations, follow-up biopsy, DC in 1- 2 days if intake is improving - IV hydration Suspected acid reflux compounded by possible dysphagia - Continue IV Protonix KATERINA - Secondary to poor by mouth intake,resolved w/ hydration Sore throat - Likely secondary to acid reflux, treat as above, negative for strep throat, no need for antibiotics or steroids at this time Leukocytosis - Suspected to be due to nausea/vomiting, improving DVT prophylaxis with early ambulation Eder Perez MD Jul 01, 2017 17:54
[2017-07-01 20:00] VITALS: BP 158/92; PULSE 67; RESP 17; TEMP 98; O2SAT 99
[2017-07-01] MEDS: LIDOCAINE VISCOUS 2% SOLN 15 ML UDC SWISH-SWAL PRN (20:12)
[2017-07-02] VITALS: BP 135/87; PULSE 61; RESP 16; TEMP 98.8; O2SAT 98
[2017-07-02] MEDS: PANTOPRAZOLE SODIUM 40 MG VIAL IV PUSH SCH (01:19)
[2017-07-02] MEDS: SODIUM CHLOR 0.9% 1000 ML INJ 1,000 ML IV SCH ×2 (01:22→11:15)
[2017-07-02 08:00] VITALS: BP 154/87; PULSE 76; RESP 18; TEMP 97.8; O2SAT 100
[2017-07-02] MEDS: LIDOCAINE VISCOUS 2% SOLN 15 ML UDC SWISH-SWAL PRN (08:40)
[2017-07-02] MEDS: SUCRALFATE 1 GM/10 ML CUP PO SCH ×2 (08:40→11:49)
[2017-07-02] MEDS: SODIUM CHLORIDE 0.9% FLUSH 10 ML FLUSH IV FLUSH SCH (08:42)
[2017-07-02] MEDS ORDERED: LIDO1SOL8 SWISH-SWAL (10:30)
[2017-07-02] MEDS ORDERED: SUCR1TAB PO (10:30)
[2017-07-02] MEDS ORDERED: ONDA1TAB17 PO (10:31)
--- NOTE | 2017-07-02 10:33 | HHI.DCPOC ---
Discharge Care Plan Diagnosis: (1) Esophagitis Goals to Promote Your Health * To prevent worsening of your condition and complications * To maintain your health at the optimal level Do not take any nonsteroidal anti-inflammatory drugs (NSAIDs) including but not limited to aspirin, Aleve, naproxen, Naprosyn, ibuprofen, Advil, Goody powders, BC powders. May take Tylenol for pain. Directions to Meet Your Goals Take your medications as prescribed Follow your dietary instruction Follow activity as directed Keep your appointments as scheduled Take your immunizations and boosters as scheduled If your symptoms worsen call your PCP, if no PCP go to Urgent Care Center or Emergency Room Smoking is Dangerous to Your Health. Avoid second hand smoke Call the 24-hour hour crisis hotline for domestic abuse at Eder Perez MD Jul 02, 2017 10:33
--- NOTE | 2017-07-02 10:35 | HHI.DS ---
Discharge Summary Admission Date Jun 30, 2017 at 11:34 Discharge Date: Jul 02, 2017 Admitting Diagnosis intractable vomiting (1) Gastritis and duodenitis ICD Code: K29.90 - Gastroduodenitis, unspecified, without bleeding Diagnosis: Principal Status: Acute (2) Esophagitis ICD Code: K20.9 - Esophagitis, unspecified Diagnosis: Principal Status: Acute Procedures EGD showing gastritis duodenitis and esophagitis Brief History - From Admission 32-year-old black male being admitted for refractory nausea vomiting secondary to dysphagia. Patient was in his usual state of health until about 6 days ago when he began experiencing a sore throat and cold chills. As the days progressed, he began experiencing nausea with intermittent bloody emeses along with dehydration and a burning sensation in his chest. He states that he had an episode where he became very lightheaded and almost fell over a few days ago and eventually proceeded to come to the emergency room due to worsening symptoms. He had a negative strep throat workup but was discharged from the ER with prescribed clindamycin and Solu-Medrol anyway which he says he took consistently. He states that his that when he tries to eat or drink something the food item gets stuck in the middle of his chest and causes severe burning and pressure. This is especially worse with any citric products, the only food item which he thinks does not worsen it is some milk. Even water, he states, would make him feel like he has increased chest pressure and burning pain, and would have lead to vomiting as well. He states that the only thing that he was able to hold down with some milk which did not worsen his symptoms otherwise the patient says he has essentially not been able to eat or drink well for the past few days and feels quite weak. Patient denies taking any NSAIDs. Denies such episodes happened to him in the past. CBC/BMP: 07/01/17 0720 07/01/17 0720 Significant Findings Laboratory Tests Test 06/30/17 00:00 06/30/17 00:50 06/30/17 09:55 07/01/17 07:20 White Blood Count 29.1 TH/MM3 (4.0-11.0) 16.7 TH/MM3 (4.0-11.0) Neutrophils (%) (Auto) 82.8 % (16.0-70.0) 71.9 % (16.0-70.0) Lymphocytes (%) (Auto) 6.9 % (9.0-44.0) Monocytes (%) (Auto) 9.8 % (0.0-8.0) 11.3 % (0.0-8.0) Neutrophils # (Auto) 24.1 TH/MM3 (1.8-7.7) 12.0 TH/MM3 (1.8-7.7) Monocytes # (Auto) 2.9 TH/MM3 (0-0.9) 1.9 TH/MM3 (0-0.9) Neutrophils % (Manual) 73 % (16-70) 73 % (16-70) Monocytes % 9 % (0-8) Neutrophils # (Manual) 22.7 TH/MM3 (1.8-7.7) 13.2 TH/MM3 (1.8-7.7) Metamyelocytes 2 % (0-1) 2 % (0-1) Myelocytes 1 % (0-0) 4 % (0-0) Nucleated Red Blood Cells 1 /100 WBC (0-0) Blood Urea Nitrogen 20 MG/DL (7-18) Creatinine 1.40 MG/DL (0.60-1.30) Random Glucose 128 MG/DL (74-106) Total Protein 8.6 GM/DL (6.4-8.2) Aspartate Amino Transf (AST/SGOT) 38 U/L (15-37) Chloride Level 97 MEQ/L (98-107) Estimat Glomerular Filtration Rate 71 ML/MIN (>89) C-Reactive Protein 1.42 MG/DL (0.00-0.30) Lipase 735 U/L (73-393) Urine Cannabinoids Screen POS (NEG) PE at Discharge No acute distress Unlabored breathing Abdomen soft, nondistended, nontender Hospital Course Patient was admitted, had EGD done which showed esophagitis, duodenitis, and gastritis - biopsies were taken. Patient was transitioned to clear liquid diet which he tolerated well but was having difficulty advancing, was started on viscous lidocaine which helped him transition to a soft diet. Patient remained afebrile and normotensive throughout his hospital stay. Case was discussed with gastroenterology, patient is stable for discharge from their standpoint. Patient has met maximum benefit from hospitalization and is clinically stable for discharge. Pt Condition on Discharge: Good Discharge Disposition: Discharge Home Discharge Time: > 30 minutes Discharge Instructions DIET: Follow Instructions for: Soft Diet Follow up Referrals: Gastroenterology - 10 Days with Kiesha Solis MD PCP Follow-up - 2 Weeks New Medications: Ondansetron (Ondansetron) 8 Mg Tab 8 MG PO TID for Nausea/Vomiting, #12 TAB 1 Refill Sucralfate (Sucralfate) 1 Gram Tab 1 GM PO TID for Duodenal ulcer, #90 TAB 0 Refills on empty stomach Lidocaine Viscous Liq (Lidocaine Viscous Liq) 15 Ml Cup 15 ML SWISH-SWAL Q6HR PRN for esophageal discomfort , #300 ML Discontinued Medications: Clindamycin (Clindamycin) 300 Mg Cap 300 MG PO Q6H for Infection for 10 Days, CAP 0 Refills Ibuprofen (Ibuprofen) 800 Mg Tab 800 MG PO Q6HR PRN for PAIN, #40 TAB 0 Refills Prednisone (Prednisone) 20 Mg Tab 20 MG PO BID for 5 Days, #10 TAB 0 Refills Eder Perez MD Jul 02, 2017 10:35
[2017-07-02 12:00] VITALS: BP 142/92; PULSE 72; RESP 18; TEMP 99.9; O2SAT 100
[2017-07-02 16:00] VITALS: BP 142/65; PULSE 65; RESP 19; TEMP 97.6; O2SAT 98
== END 2017-07-02 14:44 | disposition home or self-care (01) | DRG 392 ==
LOC: NEPD 22:08 → NEDA 06-30 03:00 → OBSVTOIN 06-30 11:34 → N06B 06-30 15:12
PROVIDERS: ADMIT Hospitalist; ATTEND Hospitalist
PROC: 0DB78ZX Excision of Stomach, Pylorus, Via Natural or Artificial Opening Endoscopic, Diagnostic (ICD-10-PCS; 2017-06-30)
PROC: 0DB38ZX Excision of Lower Esophagus, Via Natural or Artificial Opening Endoscopic, Diagnostic (ICD-10-PCS; 2017-06-30)
PROC: 0DB98ZX Excision of Duodenum, Via Natural or Artificial Opening Endoscopic, Diagnostic (ICD-10-PCS; principal; 2017-06-30 13:41)
DX: K21.0 Gastro-esophageal reflux disease with esophagitis (principal); N17.9 Acute kidney failure, unspecified; K92.0 Hematemesis; R13.10 Dysphagia, unspecified; F17.210 Nicotine dependence, cigarettes, uncomplicated; K44.9 Diaphragmatic hernia without obstruction or gangrene; E86.0 Dehydration; J02.9 Acute pharyngitis, unspecified; K76.0 Fatty (change of) liver, not elsewhere classified; K29.90 Gastroduodenitis, unspecified, without bleeding
CPT/HCPCS: 71010; 80048; 80076; 80307; 81001; 83605; 83690; 85007; 85027; 86140; 86308; 88305; 88312; 96361; 96374; 96375; 99285; C9113; J0780; J1200; J2405; J3010; J7030

== ENCOUNTER 2017-08-10 03:08 | Emergency (ER) | payer MEDICAID ==
[~2017-08-10] VITALS: Ht 175.3 cm; Wt 100.0 kg
[~2017-08-10 03:08] MED LIST changes: -CLIN1CAP6 PO; -IBUP800T23 PO; +LIDO1SOL8 SWISH-SWAL; +ONDA1TAB17 PO; -PRED20 PO; +SUCR1TAB PO
[2017-08-10 03:10] VITALS: BP 140/81; PULSE 114; RESP 16; TEMP 99.3; O2SAT 97
--- NOTE | 2017-08-10 03:58 | PD ---
HPI Chief Complaint: ENT Complaint Time Seen by Provider: 03:28 Travel History International Travel<30 days: No Contact w/Intl Traveler<30days: No Traveled to known affect area: No History of Present Illness HPI 32-year-old black male presents to emergency Department with complaints of sore throat. The patient states that is been sick now for the past 24 hours. He has had subjective fever and chills. He states that it feels as if he swallowing razor blades. Patient is comely by his significant other. They report he had a similar episode last month which started off as a sore throat but then turn into pancreatitis. He had an upper endoscopy which showed gastritis. He was sent home on Carafate. They're concerned that this is a recurrence of the pancreatitis although he has had no nausea vomiting. Patient does contend he has fever and chills, sore throat, difficulty swallowing, congestion, slight cough, and some mild diarrhea. He denies abdominal pain, dysuria, frequency, shortness breath or wheezing. PFSH Past Medical History Narrative Medical Pancreatitis, gastritis Autoimmune Disease: No Cancer: No Cardiovascular Problems: No Diabetes: No Diminished Hearing: No Endocrine: No Genitourinary: No Immune Disorder: No Musculoskeletal: No Neurologic: No Psychiatric: No Reproductive: No Respiratory: No Thyroid Disease: No Tetanus Vaccination: Unknown Past Surgical History Surgical History: No Previous Surgery Abdominal Surgery: No Cardiac Surgery: No Ear Surgery: No Endocrine Surgery: No Eye Surgery: No Genitourinary Surgery: No Gynecologic Surgery: No Neurologic Surgery: No Oral Surgery: No Thoracic Surgery: No Other Surgery: No Social History Alcohol Use: No Tobacco Use: No (quit 1 month ago) Substance Use: No Allergies-Medications (Allergen,Severity, Reaction): Coded Allergies: No Known Allergies (Verified , 08/10/17) Reported Meds & Prescriptions Reported Meds & Active Scripts Active Lidocaine Viscous Liq 15 Ml Cup 15 Ml SWISH-SWAL Q6HR PRN Sucralfate 1 Gram Tab 1 Gm PO TID on empty stomach Ondansetron (Ondansetron HCl) 8 Mg Tab 8 Mg PO TID Review of Systems General / Constitutional: Positive: Fever, Chills Eyes: No: Visual changes HENT: Positive: Sore Throat, Neck Pain, No: Headaches, Earache Cardiovascular: No: Chest Pain or Discomfort, Palpitations Respiratory: Positive: Cough, No: Shortness of Breath, Wheezing Gastrointestinal: Positive: Diarrhea, No: Nausea, Vomiting, Abdominal Pain Genitourinary: No: Dysuria Musculoskeletal: No: Pain Skin: No Rash Neurologic: No: Weakness Psychiatric: No: Depression Endocrine: No: Polydipsia Hematologic/Lymphatic: No: Easy Bruising Physical Exam Narrative GENERAL: Well-developed, well-nourished in no acute distress. Nontoxic appearing. HEAD: Normocephalic, atraumatic. EYES: Pupils equal round and reactive. Extraocular motions intact. No scleral icterus. No injection or drainage. ENT: TMs clear without erythema. The external auditory canals clear. Nose: clear . Posterior pharynx is erythematous and moist. Positive tonsillar edema with some white exudate. Uvula midline. Airway patent. NECK: Trachea midline.Supple, tender cervical and tonsillar adenopathy, moves head freely. No central bony tenderness or spasm. CARDIOVASCULAR: Regular rate and rhythm without murmurs, gallops, or rubs. RESPIRATORY: Clear to auscultation. Breath sounds equal bilaterally. No wheezes , rales, or rhonchi. GASTROINTESTINAL: Abdomen soft, non-tender, nondistended. No hepato-splenomegaly , or palpable masses. No guarding. EXTREMITIES: No clubbing, cyanosis, or edema. No joint tenderness, effusion, or edema noted. BACK: Nontender without deformity or crepitance. No flank tenderness. Data Data Last Documented VS Vital Signs Date Time Temp Pulse Resp B/P (MAP) Pulse Ox O2 Delivery O2 Flow Rate FiO2 08/10/17 04:06 08/10/17 03:10 99.3 114 16 97 Orders Orders Group A Rapid Strep Screen (08/10/17 03:34) Strep Culture (Group A) (08/10/17 03:40) MDM Medical Decision Making Medical Screen Exam Complete: Yes Emergency Medical Condition: Yes Medical Record Reviewed: Yes Interpretation(s) Rapid strep: Negative Differential Diagnosis MDM: High Differential diagnoses: Strep throat, viral pharyngitis, mono, peritonsillar abscess Narrative Course Patient had taken Tylenol prior to coming in. Rapid strep has been ordered. Rapid strep is negative. The patient will be given a refill of his Carafate, viscous lidocaine, and Zofran. The patient is aware that this is most likely a viral etiology. The patient was concerned that he may be an early stages of his recurrent gastritis or pancreatitis. He states that he has an appointment in the morning to see Dr. Taylor the theater company producer. This is acute pharyngitis Diagnosis Primary Impression: acute pharyngitis Patient Instructions: General Instructions Additional Instructions: Rest. Force fluids. Saltwater gargles. Tylenol and Advil. Chloraseptic [place] Cepastat lozenge. Medications as written. Follow-up with the theater company producer as scheduled tomorrow. Follow-up with a primary care doctor in one week. Return to the ER if any problems. Med/Other Pt SpecificInfo: Prescription(s) given Scripts Lidocaine Viscous Liq (Lidocaine Viscous Liq) 15 Ml Cup 15 ML SWISH-SWAL Q6HR Y for esophageal discomfort , #300 ML Prov: Elma Enriquez MD 08/10/17 Sucralfate (Sucralfate) 1 Gram Tab 1 GM PO TID for Duodenal ulcer, #90 TAB 0 Refills on empty stomach Prov: Elma Enriquez MD 08/10/17 Ondansetron (Ondansetron) 8 Mg Tab 8 MG PO TID for Nausea/Vomiting, #12 TAB 1 Refill Prov: Elma Enriquez MD 08/10/17 Disposition: 01 DISCHARGE HOME Condition: Stable Tobi Sams Aug 10, 2017 03:58
[2017-08-10] MEDS ORDERED: SUCR1TAB PO (04:05)
[2017-08-10] MEDS ORDERED: ONDA1TAB17 PO (04:05)
[2017-08-10] MEDS ORDERED: LIDO1SOL8 SWISH-SWAL (04:05)
[2017-08-12] MEDS ORDERED: CLIN1CAP6 PO (03:48)
== END 2017-08-10 04:19 | disposition home or self-care (01) ==
LOC: NEPD 03:08
DX: J02.9 Acute pharyngitis, unspecified (principal); Z87.891 Personal history of nicotine dependence
CPT/HCPCS: 87081; 87880; 99284

== ENCOUNTER 2017-08-11 23:43 | Emergency (ER) | payer MEDICAID ==
[~2017-08-11] VITALS: Ht 177.8 cm; Wt 90.0 kg
[2017-08-11 23:44] VITALS: BP 145/79; PULSE 98; RESP 16; TEMP 99.8; O2SAT 100
[2017-08-12 00:32] VITALS: BP 139/65; PULSE 99; RESP 16; O2SAT 99
[2017-08-12] MEDS ORDERED: KETOROLAC TROMETHAMINE 30 MG/ML (IVP) VIAL IV PUSH ONE ×2 (02:00)
[2017-08-12] MEDS ORDERED: SODIUM CHLOR 0.9% 1000 ML INJ 1,000 ML IV ONE ×4 (02:00)
[2017-08-12 03:02] LABS: AUTOMATED NEUTROPHIL # 19.3 TH/MM3 (1.8-7.7); BASOPHIL % 0.1 % (0.0-2.0); EOSINOPHIL % 0.2 % (0.0-4.0); HEMATOCRIT 40.6 % (39.0-51.0); HEMOGLOBIN 13.4 GM/DL (13.0-17.0); LYMPH % 6.4 % (9.0-44.0); LYMPHOCYTE # 1.5 TH/MM3 (1.0-4.8); MEAN CELL VOLUME 89.6 FL (80.0-100.0); MEAN CORPUSCULAR HEMOGLOBIN 29.5 PG (27.0-34.0); MEAN PLATELET VOLUME 7.8 FL (7.0-11.0); MONOCYTE # 3.4 TH/MM3 (0-0.9); NEUT % 79.3 % (16.0-70.0); PLATELET COUNT 276 TH/MM3 (150-450); RED BLOOD COUNT 4.54 MIL/MM3 (4.50-5.90); RED CELL DISTRIBUTION WIDTH 13.2 % (11.6-17.2); WHITE BLOOD COUNT 24.3 TH/MM3 (4.0-11.0)
[2017-08-12 03:27] LABS: ALBUMIN 3.2 GM/DL (3.4-5.0); ALT (GPT) 36 U/L (12-78); AST (GOT) 22 U/L (15-37); BICARBONATE 26.8 MEQ/L (21.0-32.0); BLOOD UREA NITROGEN 10 MG/DL (7-18); CALCIUM 9.3 MG/DL (8.5-10.1); CHLORIDE 102 MEQ/L (98-107); CREATININE 0.95 MG/DL (0.60-1.30); GLOMERULAR FILTRATION RATE 111 ML/MIN (>89); GLUCOSE,RANDOM 106 MG/DL (74-106); SODIUM (NA) 137 MEQ/L (136-145)
[2017-08-12 03:29] LABS: ALKALINE PHOSPHATASE 89 U/L (45-117); TOTAL BILIRUBIN ADULT 0.9 MG/DL (0.2-1.0); TOTAL PROTEIN 8.5 GM/DL (6.4-8.2)
[2017-08-12] MEDS ORDERED: DEXAMETHASONE SOD PHOS 4 MG/ML VIAL IV PUSH ONE ×2 (03:45)
[2017-08-12] MEDS ORDERED: CLIN1CAP6 PO ×2 (03:48)
--- NOTE | 2017-08-12 03:48 | PD ---
HPI Chief Complaint: Abdominal Pain Time Seen by Provider: 01:41 Travel History International Travel<30 days: No Contact w/Intl Traveler<30days: No Traveled to known affect area: No History of Present Illness HPI This is a 32-year-old male who presents to the emergency department with 3 days of sore throat, constant, severe, associated with decreased oral intake. He has had fevers and chills. Earlier in the year he was hospitalized in the setting of pharyngitis. It was ultimately attributed to esophagitis however he did have a high white blood cell count at that time. he never had a positive strep test. PFSH Past Medical History Autoimmune Disease: No Cancer: No Cardiovascular Problems: No Diabetes: No Diminished Hearing: No Endocrine: No Genitourinary: No Immune Disorder: No Musculoskeletal: No Neurologic: No Psychiatric: No Reproductive: No Respiratory: No Thyroid Disease: No Past Surgical History Surgical History: No Previous Surgery Abdominal Surgery: No Cardiac Surgery: No Ear Surgery: No Endocrine Surgery: No Eye Surgery: No Genitourinary Surgery: No Gynecologic Surgery: No Neurologic Surgery: No Oral Surgery: No Thoracic Surgery: No Other Surgery: No Social History Alcohol Use: No Tobacco Use: No (quit 1 month ago) Substance Use: No Allergies-Medications (Allergen,Severity, Reaction): Coded Allergies: No Known Allergies (Verified , 08/11/17) Reported Meds & Prescriptions Reported Meds & Active Scripts Active Clindamycin (Clindamycin HCl) 300 Mg Cap 300 Mg PO TID Lidocaine Viscous Liq 15 Ml Cup 15 Ml SWISH-SWAL Q6HR PRN Sucralfate 1 Gram Tab 1 Gm PO TID on empty stomach Ondansetron (Ondansetron HCl) 8 Mg Tab 8 Mg PO TID Review of Systems Except as stated in HPI: all other systems reviewed are Neg Physical Exam Narrative GENERAL:Well appearing, no acute distress SKIN: Focused skin assessment warm and dry. HEAD: Atraumatic. Normocephalic. EYES: Pupils equal and round. No injection or drainage. ENT: Moist mucous membranes. Posterior pharyngeal erythema with some petechiae palate, no uvular deviation or pursed very or pharyngeal asymmetry. Normal voice. NECK: Trachea midline. Tender anterior cervical lymphadenopathy. CARDIOVASCULAR: Regular rate and rhythm. No murmur appreciated. RESPIRATORY: Clear to auscultation. Breath sounds equal bilaterally. GASTROINTESTINAL: Abdomen soft, non-tender, nondistended. MUSCULOSKELETAL: No obvious deformities. NEUROLOGICAL: Awake and alert. No obvious cranial nerve deficits. No dysarthria or aphasia. No upper or lower extremity drift. No upper extremity ataxia. Visual lewis intact. PSYCHIATRIC: Appropriate mood and affect; insight and judgment normal. Data Data Last Documented VS Vital Signs Date Time Temp Pulse Resp B/P (MAP) Pulse Ox O2 Delivery O2 Flow Rate FiO2 08/12/17 04:20 88 18 132/70 (90) 98 08/12/17 00:32 Room Air 08/11/17 23:44 99.8 Orders Orders Complete Blood Count With Diff (08/12/17 01:59) Comprehensive Metabolic Panel (08/12/17 01:59) ^ Insert Iv (08/12/17 01:59) Sodium Chlor 0.9% 1000 Ml Inj (Ns 1000 M (08/12/17 02:00) Ketorolac Inj (Toradol Inj) (08/12/17 02:00) Sodium Chlor 0.9% 1000 Ml Inj (Ns 1000 M (08/12/17 02:00) Monoscreen (08/12/17 03:20) Dexamethasone Inj (Decadron Inj) (08/12/17 03:45) Ed Discharge Order (08/12/17 03:48) Labs Laboratory Tests Test 08/12/17 02:11 08/12/17 03:30 White Blood Count 24.3 TH/MM3 Red Blood Count 4.54 MIL/MM3 Hemoglobin 13.4 GM/DL Hematocrit 40.6 % Mean Corpuscular Volume 89.6 FL Mean Corpuscular Hemoglobin 29.5 PG Mean Corpuscular Hemoglobin Concent 33.0 % Red Cell Distribution Width 13.2 % Platelet Count 276 TH/MM3 Mean Platelet Volume 7.8 FL Neutrophils (%) (Auto) 79.3 % Lymphocytes (%) (Auto) 6.4 % Monocytes (%) (Auto) 14.0 % Eosinophils (%) (Auto) 0.2 % Basophils (%) (Auto) 0.1 % Neutrophils # (Auto) 19.3 TH/MM3 Lymphocytes # (Auto) 1.5 TH/MM3 Monocytes # (Auto) 3.4 TH/MM3 Eosinophils # (Auto) 0.0 TH/MM3 Basophils # (Auto) 0.0 TH/MM3 CBC Comment AUTO DIFF Differential Total Cells Counted 100 Neutrophils % (Manual) 74 % Band Neutrophils % 3 % Lymphocytes % 7 % Monocytes % 15 % Neutrophils # (Manual) 19.0 TH/MM3 Myelocytes 1 % Differential Comment FINAL DIFF MANUAL Atypical Lymphocytes % Platelet Estimate NORMAL Platelet Morphology Comment NORMAL Red Cell Morphology Comment NORMAL Blood Urea Nitrogen 10 MG/DL Creatinine 0.95 MG/DL Random Glucose 106 MG/DL Total Protein 8.5 GM/DL Albumin 3.2 GM/DL Calcium Level 9.3 MG/DL Alkaline Phosphatase 89 U/L Aspartate Amino Transf (AST/SGOT) 22 U/L Alanine Aminotransferase (ALT/SGPT) 36 U/L Total Bilirubin 0.9 MG/DL Sodium Level 137 MEQ/L Potassium Level 3.9 MEQ/L Chloride Level 102 MEQ/L Carbon Dioxide Level 26.8 MEQ/L Anion Gap 8 MEQ/L Estimat Glomerular Filtration Rate 111 ML/MIN Monoscreen NEG MDM Medical Decision Making Medical Screen Exam Complete: Yes Emergency Medical Condition: Yes Interpretation(s) Leukocytosis 79% neutrophils Electrolytes are reassuring Differential Diagnosis Viral pharyngitis, strep pharyngitis, peritonsillar abscess, retropharyngeal abscess, mononucleosis Narrative Course This is a 32-year-old male who presents to the emergency department with sore throat and decreased appetite. He was placed on a monitor and an IV was established. Labs demonstrate a marked leukocytosis with a monocytic shift. Electrolytes are reassuring with no evidence of dehydration. I don't appreciate a peritonsillar abscess on his posterior pharyngeal exam. I suspect the patient has pharyngitis. It may be viral but given his profound leukocytosis at think it's reasonable to treat him with empiric antibiotics. He was also given a dose of Decadron for symptomatic control. He is nontoxic appearing and I think is appropriate for outpatient management. Also is admitted to the hospital for pharyngitis he had a CT of the soft tissue of the neck was reassuring. We discussed the pros and cons of repeat imaging and agreed to defer at this time. Patient will return to the emergency department if his symptoms worsen. Diagnosis Primary Impression: Pharyngitis Qualified Codes: J02.9 - Acute pharyngitis, unspecified Patient Instructions: General Instructions Additional Instructions: If you develop severe chest pain, shortness of breath, sweating, lightheadedness , dizziness or difficulty breathing return to the emergency department immediately. Followup with your primary care physician in 2-3 days if your symptoms are not resolved. Med/Other Pt SpecificInfo: Prescription(s) given Scripts Clindamycin (Clindamycin) 300 Mg Cap 300 MG PO TID for Infection, #21 CAP 0 Refills Prov: Susan Shafer MD 08/12/17 Disposition: 01 DISCHARGE HOME Condition: Stable Susan Shafer MD Aug 12, 2017 03:48
[2017-08-12 03:51] LABS: BANDS 3 % (0-6); MONOCYTES 15 % (0-8); MYELOCYTES 1 % (0-0); POLYS (SEG NEUTROPHILS) 74 % (16-70)
[2017-08-12 03:52] LABS: LYMPHOCYTES 7 % (9-44)
[2017-08-12 04:20] VITALS: BP 132/70
== END 2017-08-12 04:26 | disposition home or self-care (01) ==
LOC: NEPE 23:43
DX: J02.9 Acute pharyngitis, unspecified (principal); Z87.891 Personal history of nicotine dependence
CPT/HCPCS: 80053; 85007; 85027; 86308; 96361; 96374; 96375; 99284; J1100; J1885; J7030